=== PATIENT | male | born 1940 | race Caucasian/White ===

== ENCOUNTER 2022-04-17 07:17 | Outpatient (CLI) | payer OTHER, SELFPAY | END 2022-04-17 07:18 | disposition home or self-care (01) | LOC: OP CLINIC 07:19 | PROVIDERS: PCP Nurse Practitioner Family; Visit Provider Internal Medicine Gastroenterology | DX: K22.70 Barrett's esophagus without dysplasia (principal); K31.7 Polyp of stomach and duodenum; K31.89 Other diseases of stomach and duodenum | CPT/HCPCS: 43239; J2250; J3010 ==

== ENCOUNTER 2023-05-24 14:11 | Outpatient (RCR) | payer OTHER, SELFPAY | END 2023-09-21 23:59 | disposition home or self-care (01) | PROVIDERS: PCP Nurse Practitioner Family; Visit Provider Psychiatry & Neurology Neurology | DX: G20.A1 Parkinson's disease without dyskinesia, without mention of fluctuations (principal); K11.7 Disturbances of salivary secretion; R47.02 Dysphasia; R49.0 Dysphonia; R47.89 Other speech disturbances; Z51.89 Encounter for other specified aftercare | CPT/HCPCS: 92610 ==

== ENCOUNTER 2023-08-06 10:36 | Outpatient (CLI) | payer OTHER, SELFPAY ==
--- NOTE | 2023-08-06 11:55 | P.ANES_ITS ---
Anesthesia Charges Start Date/Time Anesthesia Start Date: 08/06/23 Anesthesia Start Time: 11:24 Stop Date/Time Anesthesia Stop Date: 08/06/23 Anesthesia Stop Time: 11:52 Summary Extremes of Age - Over 70 or under 1: ADVANCED PRACTICE REGISTERED NURSE
--- NOTE | 2023-08-06 12:54 | W.ANESCHARGE ---
Anesthesia Charges Start Date/Time Anesthesia Start Date: 08/06/23 Anesthesia Start Time: 11:24 Stop Date/Time Anesthesia Stop Date: 08/06/23 Anesthesia Stop Time: 11:52 Summary Extremes of Age - Over 70 or under 1: MDA
== END 2023-08-06 10:37 | disposition home or self-care (01) ==
LOC: OP CLINIC 10:38
PROVIDERS: PCP Nurse Practitioner Family; Visit Provider Internal Medicine Gastroenterology
DX: Z12.11 Encounter for screening for malignant neoplasm of colon (principal); K57.30 Diverticulosis of large intestine without perforation or abscess without bleeding; Z86.010 Personal history of colon polyps
CPT/HCPCS: 00812; 45378; 99100; J2704

== ENCOUNTER 2024-07-22 13:27 | Outpatient (CLI) | payer OTHER, SELFPAY | END 2024-07-22 13:28 | disposition home or self-care (01) | LOC: MRI 13:29 | PROVIDERS: PCP Nurse Practitioner Family; Visit Provider Family Medicine | DX: M54.50 Low back pain, unspecified (principal); M47.896 Other spondylosis, lumbar region; M51.26 Other intervertebral disc displacement, lumbar region; M25.512 Pain in left shoulder; G89.29 Other chronic pain | CPT/HCPCS: 72148 ==

== ENCOUNTER 2024-08-05 06:26 | Outpatient (CLI) | payer OTHER, SELFPAY ==
[2024-08-05 07:14] VITALS: BP 166/95; PULSE 85; RESP 16; O2SAT 96
--- NOTE | 2024-08-05 07:43 | P.ORPRC_ITS ---
Procedure Note Date of procedure: 08/05/24 Procedure: PREOPERATIVE DIAGNOSIS: Left hip abductor tendinopathy/greater trochanteric bursitis POSTOPERATIVE DIAGNOSIS: Left hip abductor tendinopathy/greater trochanteric bursitis NAME OF OPERATION: Percutaneous tenotomy SURGEON: Santosh White MD PHOTO MASK PROCESSOR: Yessi Posada PA-C ANESTHESIA: Local ESTIMATED BLOOD LOSS: 2 mL. COMPLICATIONS: None. SPECIMENS: None. DRAINS: None. PREOPERATIVE ANTIBIOTICS: None INDICATIONS: The patient is a 83-year-old with a history of left hip pain secondary to the above diagnoses. Despite appropriate non operative management, they continue to have symptoms. Operative intervention was recommended. The risks, benefits and expected outcomes were discussed in detail. These included but were not limited to: Infection, bleeding, injury to blood vessel or nerve, venous thromboembolism. All questions were answered to their satisfaction. PROCEDURE: The patient was placed in the lateral decubitus position. The left hip was imaged in the long and short axes with the ultrasound transducer. Normal acoustic landmarks were identified. We then sterilely prepped and draped the skin, and used a sterile probe cover with sterile gel. Local anesthesia was established with 10 mL of a solution containing 2 % lidocaine without epinephrine, 0.5% Marcaine without epinephrine and sodium bicarbonate. An 11 blade was used to incise the skin. The Tenex TX 2 micro tip was used to treat the abductor tendon for a total of 4 minutes and 7 seconds. The incision was Steri-Stripped closed. A dry dressing was applied. Sponge and needle counts were correct x2. The patient tolerated the procedure well. There were no apparent complications. They were discharged to home in satisfactory condition. PLAN: The patient may weightbear as tolerates. Ice, Tylenol and ibuprofen can be used for discomfort. They may ramp up activity as the hip will allow. They will follow up in the office in 6 weeks to assess their progress.
== END 2024-08-05 07:46 | disposition home or self-care (01) ==
PROVIDERS: PCP Nurse Practitioner Family; Visit Provider Orthopaedic Surgery
DX: M70.62 Trochanteric bursitis, left hip (principal)
CPT/HCPCS: 27006; 76942; J0665

== ENCOUNTER 2024-08-12 09:22 | Outpatient (CLI) | payer OTHER, SELFPAY | END 2024-08-12 09:23 | disposition home or self-care (01) | LOC: INJ CL 09:22 | PROVIDERS: PCP Nurse Practitioner Family; Visit Provider Family Medicine | DX: M54.16 Radiculopathy, lumbar region (principal); M51.26 Other intervertebral disc displacement, lumbar region | CPT/HCPCS: 64483; J1100; Q9966 ==

== ENCOUNTER 2024-09-05 08:27 | Outpatient (CLI) | payer OTHER, SELFPAY | END 2024-09-05 08:28 | disposition home or self-care (01) | LOC: INJ CL 08:28 | PROVIDERS: PCP Nurse Practitioner Family; Visit Provider Family Medicine | DX: M54.16 Radiculopathy, lumbar region (principal); M51.369 Other intervertebral disc degeneration, lumbar region without mention of lumbar back pain or lower extremity pain | CPT/HCPCS: 64483; J1100; Q9966 ==

== ENCOUNTER 2025-04-17 09:04 | Outpatient (CLI) | payer OTHER, SELFPAY ==
--- NOTE | 2025-04-17 10:20 | P.ANES_ITS ---
Anesthesia Charges Start Date/Time Anesthesia Start Date: 04/17/25 Anesthesia Start Time: 09:50 Stop Date/Time Anesthesia Stop Date: 04/17/25 Anesthesia Stop Time: 10:19 Summary Extremes of Age - Over 70 or under 1: PULMONARY NURSE PRACTITIONER Coding CPT Codes CPT Codes: ANES UPR GI NDSC PX NOS - 36195 ([id number]) P3 - PATIENT W/SEVERE SYS DISEASE, QZ - PULMONARY NURSE PRACTITIONER SVC W/O SUPERVISOR TUMBLING AND ROLLING BY Additional Codes: Summary - Extremes of Age - Over 70 or under 1: PULMONARY NURSE PRACTITIONER ([id number])
--- NOTE | 2025-04-17 10:20 | W.ANESCHARGE ---
Anesthesia Charges Start Date/Time Anesthesia Start Date: 04/17/25 Anesthesia Start Time: 09:50 Stop Date/Time Anesthesia Stop Date: 04/17/25 Anesthesia Stop Time: 10:19 Summary Extremes of Age - Over 70 or under 1: MEDICAL INTERPRETER Coding CPT Codes CPT Codes: ANES UPR GI NDSC PX NOS - 62538 ([id number]) P3 - PATIENT W/SEVERE SYS DISEASE, QZ - MEDICAL INTERPRETER SVC W/O FOREIGN STUDENT ADVISER BY Additional Codes: Summary - Extremes of Age - Over 70 or under 1: MEDICAL INTERPRETER ([id number])
== END 2025-04-17 09:05 | disposition home or self-care (01) ==
LOC: OP CLINIC 09:05
PROVIDERS: PCP Nurse Practitioner Family; Visit Provider Internal Medicine Gastroenterology
DX: K22.70 Barrett's esophagus without dysplasia (principal); K31.9 Disease of stomach and duodenum, unspecified; K22.82 Esophagogastric junction polyp
CPT/HCPCS: 00731; 43239; 88305; 99100; J2704; J3010

== ENCOUNTER 2025-05-20 19:47 | Emergency (ER) | payer OTHER, SELFPAY ==
[2025-05-20] VITALS (10 sets, daily range): BP systolic 100–131; BP diastolic 55–71; PULSE 76–92; RESP 13–22; TEMP 36.2–36.6; O2SAT 93–99; BMI 32.8
--- NOTE | 2025-05-20 20:24 | CRLHL7_ITS ---
For Patients: As a result of the Cures Act, medical imaging exams and procedure reports are released immediately into your electronic medical record. You may view this report before your referring provider. If you have questions, please contact your health care provider. INDICATION: Chest pain. TECHNIQUE: Chest 2 views. COMPARISON: None. FINDINGS: Cardiovascular and mediastinum: Cardiomediastinal silhouette is within normal limits. Lungs and pleural spaces: Hyperinflated lungs, likely reflecting COPD. No consolidation. No pleural effusions or pneumothorax. Bones and soft tissues: Degenerative changes of the spine and shoulders. IMPRESSION: No evidence of acute pulmonary process. Dictated by Jase Trotter MD @ 05/20/2025 11:02:20 PM (Electronically Signed)
--- NOTE | 2025-05-20 20:24 | ED_ITS ---
HPI - General Adult General Chief complaint: GI Bleed Stated complaint: black bowel movements, unsteady Time Seen by Provider: 05/20/25 19:51 History of Present Illness HPI narrative: 84-year-old male with a pertinent history of AFib, coronary artery disease and known gastric polyps that have caused prior GI bleed in the past presents to the ED with weakness. He is concerned that he could be having a GI bleed because he had a black stool, loose in nature today at noon. He does take MiraLax daily but had not had a bowel movement in 4 days until today. It was only the 1 stool that was black tinged. Last stool was Sunday which is 4 days ago prior to this and that 1 was formed and dark brown though not frankly black. There has been no bright red blood. He had an endoscopy last month and this showed that he had gastric polyps. He is scheduled for resection of those in July. Met with his GI doctor 10 days ago and did not have any signs or symptoms of active bleeding at that time. Patient does have a notable history of coronary artery disease. Reports she saw his host/hostess ground over the summer. He was having some stable angina symptoms and did have a stress test. Reports that he was prescribed isosorbide for days when he has chest pain. He has DUs that the last couple of days. He is not having yvonne chest pain he is having lower throat pain on exertion. He says that this is his typical anginal equivalent. This is an ongoing issue and typically the isosorbide does relieve his symptoms. It did not completely relieve his symptoms and he did become symptomatic while walking to get the mail today. Symptoms went away with rest and he has not continued to have any chest pain or his equivalent symptoms. He does have a history of AFib, anticoagulated on Eliquis, continues to take this without difficulty. He reports that his weight did go up from his baseline of 235 to 240 3 days ago. Because of this he took double his furosemide twice daily on Sunday and then again today. So an important part of the story here is that he took both double his furosemide and the rarely used isosorbide. He reports that since he was feeling weak, he took his blood pressure noted to be around 100/60 at home. This made him more concerned about the possibility of GI bleeding. He is also noting dizziness for the past 3 days. Specifically this is not vertigo type symptoms but rather lightheadedness and fatigue. No stroke-like symptoms or focal weakness noted. He does have a history of Parkinson's, reports that he fell 8 days ago, has some bruising around his left knee and hip, thinks that is unrelated. Currently he is denying any chest pain or his anginal equivalent at rest, no nausea or vomiting, no shortness of breath. Weight has come down from the high of 242 days ago down to 238 this morning. He would be scheduled to take his extra furosemide again on Sunday to complete the 3 times in 1 week scheduled protocol for 5 lb weight gain. Past medical history is notable for atrial fibrillation, anticoagulated on Eliquis status post ablation, coronary artery disease with multiple prior stents placed, hyperlipidemia, Parkinson's disease, hypertension, osteoarthritis the lumbar spine. Medications reviewed and updated. The only medication not on his list is the p.r.n. isosorbide and his furosemide which he takes based on his weight. Allergies noted, reviewed. Twelve system review of systems is notable for the generalized, cardiovascular and GI symptoms as above. Otherwise denies times 12 systems. Related Data Home Medications ?Medication ?Instructions ?Recorded ?Confirmed amlodipine 10 mg tablet 10 mg PO DAILY 03/10/2408/23 apixaban 5 mg tablet (Eliquis) 5 mg PO BID 03/10/24 carbidopa 25 mg-levodopa 100 mg tab PO 03/10/24 tablet clobetasol 0.05 % scalp solution topical 03/10/2408/23 cyclobenzaprine 10 mg tablet 10 mg PO BID PRN 03/10/24 09/10/24 ketoconazole 2 % shampoo 1 applic topical 2XW 4 09/10/24 lansoprazole 30 mg capsule,delayed 30 mg PO DAILY 02/2309/10/24 release leuprolide acetate (6 month) 45 mg 45 mg IM [id number] 03/10/24 09/10/24 intramuscular syringe kit (Lupron Depot) metoprolol tartrate 25 mg tablet 25 mg PO BID PRN 02/2309/10/24 nitroglycerin 0.4 mg sublingual 0.4 mg sublingual WHITNEY Y 03/10/24 09/10/24 tablet rosuvastatin 20 mg tablet 20 mg PO QPM 03/10/24 losartan 50 mg tablet 50 mg PO BID 07/30/24 gabapentin 300 mg capsule 600 mg PO QHS 08/25/2409/10 Previous Rx's ?Medication ?Instructions ?Recorded tramadol 50 mg tablet 50 mg PO Q6-8H PRN pain #30 tabs 07/24/24 Chair Lift #1 ea 09/10/24 Powered Stair Lift #1 ea 09/10/24 Walker- 4 Wheels #1 ea 09/10/24 Allergies Allergy/AdvReac Type Severity Reaction Status Date / Time adhesive Allergy Rash Verified 05/20/25 19:58 atorvastatin Allergy myalgia Verified 05/20/25 19:58 lovastatin Allergy malagia Verified 05/20/25 19:58 lisinopril AdvReac Cough Verified 05/20/25 19:58 potassium aminbenzoate Allergy Uncoded 09/10/24 10:33 sunscreen Allergy Uncoded 09/10/24 10:33 [facility] Medical History Hip bursitis, left ?M70.72 - Other bursitis of hip, left hip (ICD-10) Skin cancer ?C44.90 - Unspecified malignant neoplasm of skin, unspecified (ICD-10) Parkinsons disease ?G20.A1 - Parkinson's disease without dyskinesia, without mention of fluctuations (ICD-10) High cholesterol ?E78.00 - Pure hypercholesterolemia, unspecified (ICD-10) Coronary artery disease ?I25.10 - Atherosclerotic heart disease of [place] coronary artery without angina pectoris (ICD-10) Prostate cancer ?C61 - Malignant neoplasm of prostate (ICD-10) Hypertension ?I10 - Essential (primary) hypertension (ICD-10) Surgical History History of tenotomy (08/05/24) ?Z98.890 - Other specified postprocedural states (ICD-10) History of ear surgery ?Z98.890 - Other specified postprocedural states (ICD-10) History of heart artery stent ?Z95.5 - Presence of coronary angioplasty implant and graft (ICD-10) History of arthroscopy of right shoulder (02/28/12) ?Z98.890 - Other specified postprocedural states (ICD-10) History of arthroscopy of left shoulder (03/09/15) ?Z98.890 - Other specified postprocedural states (ICD-10) History of arthroscopy of right knee (08/24/10) ?Z98.890 - Other specified postprocedural states (ICD-10) History of arthroscopy of left knee (05/18/14) ?Z98.890 - Other specified postprocedural states (ICD-10) Family History Other Colon cancer Heart disease Social History Narrative: -Didi Former smoker-quit 1989 Smoking Status: Former smoker What tobacco products do you use: cigarettes Smoking quit date/years: >15 years ago Do you use any of these nicotine containing products: None Second hand tobacco smoke exposure: No Exam Const: Vital Signs, click to edit/add: Vital Signs - 24 hr 05/20/25 19:52 05/20/25 21:05 05/20/25 21:06 Temperature 97.8 F Pulse Rate 83 80 Pulse Rate [Pulse Oximeter] 91 Pulse Rate [orthos tatic lying Right Pulse Oximeter] Pulse Rate [orthos tatic sitting Left Pulse Oximeter] Pulse Rate [orthos tatic standing Rig ht Pulse Oximeter] Respiratory Rate 16 22 19 Blood Pressure 103/55 L Blood Pressure [Ri ght Upper Arm] 109/66 Blood Pressure [or thostatic lying Ri ght Arm] Blood Pressure [or thostatic sitting Right Arm] Blood Pressure [or thostatic standing Right Arm] Pulse Oximetry 99 96 94 Oxygen Delivery Me thod Room Air 05/20/25 21:15 05/20/25 21:17 05/20/25 21:30 Temperature Pulse Rate 85 80 Pulse Rate [Pulse Oximeter] Pulse Rate [orthos tatic lying Right Pulse Oximeter] Pulse Rate [orthos tatic sitting Left Pulse Oximeter] Pulse Rate [orthos tatic standing Rig ht Pulse Oximeter] Respiratory Rate 18 14 Blood Pressure 131/69 Blood Pressure [Ri ght Upper Arm] Blood Pressure [or thostatic lying Ri ght Arm] Blood Pressure [or thostatic sitting Right Arm] Blood Pressure [or thostatic standing Right Arm] Pulse Oximetry Oxygen Delivery Me thod 05/20/25 21:32 05/20/25 22:21 05/20/25 23:30 Temperature 97.2 F L Pulse Rate 76 Pulse Rate [Pulse Oximeter] 78 Pulse Rate [orthos tatic lying Right Pulse Oximeter] 82 Pulse Rate [orthos tatic sitting Left Pulse Oximeter] 91 Pulse Rate [orthos tatic standing Rig ht Pulse Oximeter] 92 Respiratory Rate 13 16 Blood Pressure 128/59 L Blood Pressure [Ri ght Upper Arm] 100/57 L Blood Pressure [or thostatic lying Ri ght Arm] 109/61 Blood Pressure [or thostatic sitting Right Arm] 110/63 Blood Pressure [or thostatic standing Right Arm] 115/71 Pulse Oximetry 96 93 Oxygen Delivery Me thod Room Air 05/20/25 23:32 Temperature Pulse Rate Pulse Rate [Pulse Oximeter] Pulse Rate [orthos tatic lying Right Pulse Oximeter] Pulse Rate [orthos tatic sitting Left Pulse Oximeter] Pulse Rate [orthos tatic standing Rig ht Pulse Oximeter] Respiratory Rate Blood Pressure Blood Pressure [Ri ght Upper Arm] 106/64 Blood Pressure [or thostatic lying Ri ght Arm] Blood Pressure [or thostatic sitting Right Arm] Blood Pressure [or thostatic standing Right Arm] Pulse Oximetry Oxygen Delivery Me thod Documenting provider has reviewed patient's vital signs: yes Common normals: no apparent distress and alert Other: Speaks slowly, resting tremor noted. Masked faces, friendly and cooperative. No pallor. Appears well nourished and well hydrated. HENMT: Common normals: normocephalic, moist oral mucous membranes and oropha rynx normal Head and scalp: normocephalic Mouth: oral and palatal mucosa normal Eye: Common normals: EOMs intact bilaterally and conjunctivae normal General eye: normal appearance of both eyes Conjunctiva: conjunctiva(e) normal Neck & C-Spine: Common normals: no lymphadenopathy General: normal visual inspection Resp: Common normals: normal respiratory effort, no use of accessory muscles and clear to auscultation bilaterally Effort & inspection: able to speak in complete sentences Auscultation: clear to auscultation bilaterally Cardio: Common normals: regular rate, regular rhythm, S1 normal heart sound, S2 normal heart sound and no murmurs Rate: regular rate Rhythm: regular rhythm Heart sounds: S1 normal and S2 normal GI: Common normals: Normal to inspection, nondistended, normoactive bowel sounds present, soft to palpation, non-tender, no hepatosplenomegaly and no masses Palpation: soft and no hepatosplenomegaly Extremity: Other: Moderate bruising along left lateral knee and lateral thigh. No palpable hematoma or joint effusion. Does seem consistent with date of reported injury. 1+ bilateral lower extremity edema. Neuro: Sensorium/orientation: alert Speech: speech normal Motor exam: strength 5/5 throughout Psych: Appearance: grossly normal Attitude: engaged Attention/concentration: attention grossly intact Memory/cognition: memory grossly intact Insight: insight good Judgement: judgment good Skin: Common normals: no rashes or lesions noted General skin exam: no rashes or lesions noted Course Course ED Course: 84-year-old male with history of Parkinson's presenting with weakness and questionable anginal equivalent symptoms with dark stool worrisome for recent GI bleed. Known source of gastric polyps. Will obtain stool fecal occult blood test. EKG, electronic device monitor and troponins as well as BNP. Chest x-ray. Typical labs to look for dehydration, electrolyte abnormalities, renal dysfunction. My suspicion is the weakness has been caused by the use of his increased diuretics at the same time as his isosorbide in addition to all of his other ant ihypertensives. He is not frankly hypotensive, will obtain some orthostatic blood pressures. I think that he might feel little better if he got some IV fluid but I am hesitant to do that until I am certain he is not volume overloaded or exhibiting signs of heart failure. Await findings. Update: Review of the records shows that his hemoglobin from other health systems tends to run around 13, most recent value drawn was back from December though. Reevaluation(s) Time of Reevaluation #1: 23:07 Reevaluation #1: Counseled patient and his on findings. Suspect that this is been a chronically bleeding upper GI bleed but has become more acute and certainly has become symptomatic now that he is having anginal equivalent and symptoms of heart failure. Recommended transfer, they were agreeable to this, do sign off on ambulance transfer. I have spoken with [facility] and the [place] [facility] has accepted the patient also and will consult GI. Will give Protonix. Orthostatic blood pressures reviewed, not currently orthostatic. We will hold the patient's Eliquis. No signs of sudden active GI bleed or hemodynamic instability. No indications to transfuse just yet. Awaiting nurse report and then will transfer by ALS ground. Was informed that there are currently no beds delays. Update: Patient transferred to [facility] by ALS ground with no complications. Still had no active signs of bleeding and vitals remain stable. Vital Signs Vital signs: Initial Vital Signs Temperature 97.8 F 05/20/25 19:52 Temperature Source Temporal Artery Scan 05/20/25 19:52 Pulse Rate 91 05/20/25 19:52 Respiratory Rate 16 05/20/25 19:52 Blood Pressure 109/66 05/20/25 19:52 Blood Pressure Mean 80 05/20/25 19:52 Blood Pressure Position Sitting 05/20/25 19:52 Pulse Oximetry 99 05/20/25 19:52 Oxygen Delivery Method Room Air 05/20/25 19:52 Vital Signs Temperature 97.8 F 05/20/25 19:52 Pulse Rate 91 05/20/25 19:52 Respiratory Rate 16 05/20/25 19:52 Blood Pressure 109/66 05/20/25 19:52 Pulse Oximetry 99 05/20/25 19:52 Oxygen Delivery Method Room Air 05/20/25 19:52 Temperature 97.2 F L 05/20/25 23:30 Pulse Rate 78 05/20/25 23:30 Respiratory Rate 16 05/20/25 23:30 Blood Pressure 106/64 05/20/25 23:32 Pulse Oximetry 93 05/20/25 23:30 Oxygen Delivery Method Room Air 05/20/25 23:30 Medications Administered Medications: Discontinued Medications Generic Name Dose Route Start Last Admin Trade Name Freq PRN Reason Stop Dose Admin Acetaminophen 1,000 mg 05/21/25 00:05 05/21/25 00:09 Acetaminophen 500 Mg Tablet PO 05/21/25 00:06 1,000 mg ONCE ONE Administration Pantoprazole Sodium 40 mg 05/20/25 22:46 05/20/25 23:03 Pantoprazole Sodium 40 Mg Inj IVP 05/20/25 22:47 40 mg ONCE ONE Administration Medical Decision Making Lab Data Lab results reviewed: Yes I reviewed the patient's lab results Lab results narrative: Hemoglobin drop from 13-8.4. Remainder of electrolytes, renal function, liver function, inflammatory markers all look normal. BUN is elevated, not unexpected with upper GI bleed. Labs: Lab Results 05/20/25 Range/Units 20:30 WBC 9.58 (4.50-11.00) K/uL RBC 2.50 L (4.30-5.90) m/uL Hgb 8.4 L (13.5-17.5) gm/dL Hct 25.3 L (37.0-53.0) % MCV 101 H (80-100) fL MCH 34 (26-34) pg MCHC 33 (32-36) gm/dL RDW Coeff of Miki 14.5 (11.5-15.5) % Plt Count 196 (140-440) K/uL Neut % (Auto) 68.3 (42.0-72.0) % Lymph % (Auto) 21.1 (20-44) % [place] % (Auto) 7.0 (0.0-11.0) % Eos % (Auto) 3.2 (0.0-7.0) % Baso % (Auto) 0.1 (0.0-3.0) % Neut # (Auto) 6.54 (1.7-7.0) K/uL Lymph # (Auto) 2.02 (0.90-2.90) K/uL [place] # (Auto) 0.70 (0.00-0.90) K/UL Eos # (Auto) 0.31 (0.00-0.50) K/uL Baso # (Auto) 0.01 (0.00-0.30) K/uL Abs Immat Gran (auto) 0.03 (0.00-0.30) K/uL Imm/Tot Granulo (auto) 0.3 % Sodium 137 (135-149) mmol/L Potassium 3.3 L (3.6-5.1) mmol/L Chloride 98 (96-114) mmol/L Carbon Dioxide 26 (20-32) mmol/L Anion Gap 13 (7-15) mEq/L BUN 48 H (7-30) mg/dL Creatinine 1.0 (0.5-1.5) mg/dL Estimated Creat Clear 59.61 Estimated GFR 75 ml/min Glucose 141 H (60-115) mg/dL Calcium 8.7 (8.4-10.6) mg/dL Magnesium 1.9 (1.5-2.6) mg/dL Total Bilirubin 0.4 (0.1-1.5) mg/dL AST 25 (12-35) U/L ALT 9 (4-50) U/L Alkaline Phosphatase 51 (40-150) U/L POC Troponin I High Sensi 5.6 (2.9-28.0) pg/mL C-Reactive Protein < 0.5 L (0.5-1.0) mg/dL NT-Pro-B Natriuret Pep 67 (See Note) pg/mL Total Protein 6.9 (6.0-8.3) g/dL Albumin 4.0 (3.3-5.0) g/dL Imaging Data Chest x-ray: Attestation: I have reviewed the pertinent imaging results. My impression: No pleural effusion, no cardiomegaly, no infiltrate or vascular congestion. Radiologist's impression: IMPRESSION: No evidence of acute pulmonary process. Dictated by Jase Trotter MD @ 05/20/2025 11:02:20 PM ECG Data Attestation: I personally reviewed and interpreted this ECG as follows: Prior ECG tracings: not available for review Interpretation: No prior comparison EKG. Patient is currently in sinus rhythm there are few PACs but rate is currently 80. [place] appears normal. PN T-waves appear normal. No obvious major ST or T-wave abnormalities that would indicate ischemia. Discharge Plan Discharge Clinical Impression: Acute upper gastrointestinal bleeding, Acute blood loss anemia, Angina of effort Patient Disposition: [facility] Condition: Guarded Prescriptions: No Action clobetasol 0.05 % solution topical ketoconazole 2 % shampoo 1 applic topical 2XW amlodipine 10 mg tablet 10 mg PO DAILY nitroglycerin 0.4 mg tablet, sublingual 0.4 mg sublingual DAILY cyclobenzaprine 10 mg tablet 10 mg PO BID PRN metoprolol tartrate 25 mg tablet 25 mg PO BID PRN lansoprazole 30 mg capsule,delayed release(DR/EC) 30 mg PO DAILY Eliquis 5 mg tablet 5 mg PO BID rosuvastatin 20 mg tablet 20 mg PO QPM carbidopa-levodopa 25-100 mg tablet PO Lupron Depot (6 Month) 45 mg syringe kit 45 mg IM [id number] losartan 50 mg tablet 50 mg PO BID gabapentin 300 mg capsule 600 mg PO QHS Patient Comments: [NO ORIGINAL SIG] (DME) Powered Stair Lift See Rx Instructions .Route .MEDSUPPLY Qty: 1 0RF Rx Instructions: As directed (DME) Chair Lift See Rx Instructions .Route .MEDSUPPLY Qty: 1 0RF Rx Instructions: As directed (DME) Walker- 4 Wheels Misc See Rx Instructions .Route Qty: 1 0RF Rx Instructions: As directed tramadol 50 mg tablet 50 mg PO Q6-8H PRN (Reason: pain) Qty: 30 0RF Stand Alone Forms: My[facility] Info Instructions
[2025-05-20 20:42] LABS: Hematocrit* 25.3 % (37.0-53.0); Hemoglobin* 8.4 gm/dL (13.5-17.5); Immature Granulocytes Abs Auto 0.03 K/uL (0.00-0.30); Immature Granulocytes Pct Auto 0.3 %; Lymphocytes Absolute Auto 2.02 K/uL (0.90-2.90); Mean Corpuscular HGB Conc 33 gm/dL (32-36); Mean Corpuscular Hemoglobin 34 pg (26-34); Mean Corpuscular Volume 101 fL (80-100); RDW Coefficient of Variation % 14.5 % (11.5-15.5); Red Blood Count* 2.50 m/uL (4.30-5.90); White Blood Count* 9.58 K/uL (4.50-11.00)
[2025-05-20 20:49] LABS: Slide Review Reflex No
[2025-05-20 20:55] LABS: Albumin* 4.0 g/dL (3.3-5.0); Chloride* 98 mmol/L (96-114); Potassium* 3.3 mmol/L (3.6-5.1); Sodium* 137 mmol/L (135-149)
[2025-05-20 20:57] LABS: Blood Urea Nitrogen* 48 mg/dL (7-30); Creatinine* 1.0 mg/dL (0.5-1.5); Est. Creatinine Clearance* 59.61; Estimated Glomerular Filt Rate 75 ml/min
[2025-05-20 20:58] LABS: Alanine Aminotransferase* 9 U/L (4-50); Alkaline Phosphatase* 51 U/L (40-150); Anion Gap 13 mEq/L (7-15); Aspartate Amino Transferase* 25 U/L (12-35); Bilirubin Total* 0.4 mg/dL (0.1-1.5); Calcium* 8.7 mg/dL (8.4-10.6); Carbon Dioxide* 26 mmol/L (20-32); Glucose* 141 mg/dL (60-115); Total Protein* 6.9 g/dL (6.0-8.3)
--- OUTSIDE RECORDS SUMMARY | 2025-05-20 20:59 | XMS_ITS | Clinical Summary ---
Author Organization [facility] Address [address] , [address] [place] [address] Phone Care Team Providers Care Maintenance Mechanic Millwright Name Role Phone [facility] [place] Unavailable Unava ilable Conditions or Problems Problem Name Problem Code Onset Date Status Entry Date Provider Comment Standard Description Annotate Gait imbalance [id number] (SNOMED CT) 01/22 Active 01/22 Kailey Mendoza DNP,BODY TRIMMER UPHOLSTERER,CN P Abnormal gait due to impairment of balance Tremor, left hand 59647309 (SNOMED CT) 07/31 Active 07/31 Kailey Mendoza DNP,BODY TRIMMER UPHOLSTERER,CN P Tremor Parkinson's disease without dyskinesia, without mention of fluctuations 05608285 (SNOMED CT) 08/08 Active 08/08 [facility] Parkinson's disease Drooling 52437762 (SNOMED CT) Active Kailey Mendoza DNP,BODY TRIMMER UPHOLSTERER,CN P Dribbling from mouth Cog wheel rigidity 56500148 (SNOMED CT) 08/08 Active 08/08 Simón Cali MD Cogwheel muscle rigidity Weakness of left arm 042815668 (SNOMED CT) 07/09 Resolved 07/09 Simón Cali MD Monoparesis - arm Parkinsonism 70968453 (SNOMED CT) 09/01 Resolved 09/01 Simón Cali MD Parkinsonism Parkinson's disease 51199813 (SNOMED CT) 08/08 Inactive 08/08 Simón Cali MD Parkinson's disease Parkinsonism 88182732 (SNOMED CT) 09/01 Removed 09/01 Chandra Rdz MD Parkinsonism Median neuropathy 015198841 (SNOMED CT) 07/29 Active 07/29 Ismael Dash MD 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 07/29 Ismael Dash MD Ulnar neuropathy Weakness of left arm 201630178 (SNOMED CT) 07/09 Removed 07/09 Chandra Rdz MD Monoparesis - arm Medications Medication Instructions Start Date Stop Date Generic Name NDC Provider ENTACAPONE 200 MG TABS 1 TAB ORALLY 3 TIMES DAILY (TAKE ALONG WITH CARBIDOPA-LEVO DOPA) 01/22 entacapone [id number] Kailey Mendoza DNP,BODY TRIMMER UPHOLSTERER,TRASH COLLECTOR SUPERVISOR CARBIDOPA-LEVODOP A 25-100 MG TABS TAKE TWO TABLETS BY MOUTH FOUR TIMES A DAY carbidopa-levodop a [id number] Kailey Mendoza DNP,BODY TRIMMER UPHOLSTERER,TRASH COLLECTOR SUPERVISOR SOTALOL HCL 80 MG TABS Take 1 tablet by mouth twice a day sotalol 79904692945 Simón Cali MD CARBIDOPA-LEVODOP A 25-100 MG TABS TAKE TWO TABLETS BY MOUTH THREE TIMES A DAY, DO NOT TAKE WITH FOOD. MAY TAKES EXTRA 1 TO 2 TABS NEEDED FOR BAD DAYS carbidopa-levodop a [id number] Simón Cali MD ENTACAPONE 200 MG TABS 1 TAB ORALLY 3 TIMES DAILY (TAKE ALONG WITH CARBIDOPA-LEVO DOPA) 01/22 entacapone 21831975525 Simón Cali MD CARBIDOPA-LEVODOP A 25-100 MG TABS TAKE TWO TABLETS BY MOUTH THREE TIMES A DAY, at 1 hr before meals . MAY TAKES EXTRA 1 TO 2 TABS NEEDED FOR BAD DAYS 01/22 carbidopa-levodop a 53545814586 Simón Cali MD MEGESTROL ACETATE 20 MG TABS 07/31 megestrol 12490047354 Kailey Harman Rechtzigel DNP,BODY TRIMMER UPHOLSTERER,TRASH COLLECTOR SUPERVISOR CARBIDOPA-LEVODOP A 25-100 MG TABS TAKE TWO TABLETS BY MOUTH THREE TIMES A DAY, DO NOT TAKE WITH FOOD. MAY TAKES EXTRA 1 TO 2 TABS NEEDED FOR BAD DAYS 01/02 carbidopa-levodop a 27827183526 Simón Cali MD MEGESTROL ACETATE 20 MG TABS 07/31 megestrol 18946040649 Kailey Ghazal Rechtzigel DNP,BODY TRIMMER UPHOLSTERER,TRASH COLLECTOR SUPERVISOR TAMSULOSIN HCL 0.4 MG CAPS tamsulosin 71179854036 Kailey Ghazal Rechtzigel DNP,BODY TRIMMER UPHOLSTERER,TRASH COLLECTOR SUPERVISOR lupron lupron Kailey Ghazal Rechtzigel DNP,BODY TRIMMER UPHOLSTERER,TRASH COLLECTOR SUPERVISOR AMLODIPINE BESYLATE 5 MG TABS 08/08 amlodipine 49904832791 Simón Cali MD PREDNISONE 20 MG TABS Take 3 tabs daily with food for 4 days, then 2 tabs daily for 4 days, and then 1 tab daily for 4 days. 08/08 prednisone 21753582376 Simón Cali MD CARBIDOPA-LEVODOP A 25-100 MG TABS TAKE TWO TABLETS BY MOUTH THREE TIMES A DAY, DO NOT TAKE WITH FOOD 08/08 carbidopa-levodop a [id number] Simón Cali MD CARBIDOPA-LEVODOP A 25-100 MG TABS TAKE TWO TABLETS BY MOUTH THREE TIMES A DAY, DO NOT TAKE WITH FOOD. MAY TAKES EXTRA 1 TO 2 TABS NEEDED FOR BAD DAYS 01/02 carbidopa-levodop a 43791660315 Simón Cali MD CYCLOBENZAPRINE HCL 10 MG TABS Take 1 tablet by mouth twice a day as needed cyclobenzaprine 38068340047 Andrés Titus ALBUTEROL SULFATE HFA 108 (90 Base) MCG/ACT AERS Inhale 2 puff by mouth four times a day as needed albuterol sulfate 41307154776 Andrés Titus BETAMETHASONE DIPROPIONATE 0.05 % LOTN Apply to skin twice a day betamethasone dipropionate 03667819684 Andrés Ariela SOTALOL HCL 80 MG TABS Take 1 tablet by mouth twice a day sotalol 11077794673 Andrés Titus multivitamins-min erals-lutein 1 tablet CERTAVITE SENIOR-ANTIOXIDAN T Andrés Pearceterridanna PREDNISONE 20 MG TABS Take 3 tabs daily with food for 4 days, then 2 tabs daily for 4 days, and then 1 tab daily for 4 days. 08/08 prednisone 40515492282 Andrés Ariela LANSOPRAZOLE 30 MG CPDR Take 1 capsule by mouth once a day lansoprazole 94443664636 Andrés Titus FEXOFENADINE HCL 180 MG TABS Take 1 tablet by mouth once a day fexofenadine 49609884224 Andrés Titus glucosamine-chond roit-vit c-mn Take 1 capsule by mouth three times a day GLUCOSAMINE 1500 COMPLEX Andrés Titus ELIQUIS 5 MG TABS Take 1 tablet by mouth twice a day apixaban 30967511127 Andrés Titus AMLODIPINE BESYLATE 5 MG TABS Take 1 tablet by mouth once a day amlodipine 82732757301 Andrés Titus ACETAMINOPHEN 500 MG TABS 1000 mg by mouth acetaminophen 01254311313 Andrés Titus ROSUVASTATIN CALCIUM 20 MG TABS Take 1 tablet by mouth every night rosuvastatin 13841554003 Andrés Titus NITROGLYCERIN 0.[address] 1 tablet under the tongue every 5 minutes if needed for Chest Pain. nitroglycerin 00222525886 Andrés Titus KETOCONAZOLE 2 % SHAM Lather on damp scalp, leave on for 5min, then rinse with water one to two times a week. ketoconazole 73507206692 Andrés Titus LOSARTAN POTASSIUM 50 MG TABS Take 1 tablet by mouth once a day losartan 78338173936 Andrés Titus fish oil-omega-3 fatty acids 1,000-340 mg capsule Take 4000 mg once a day fish oil-omega-3 fatty acids 1,000-340 mg capsule Andrés Titus AMLODIPINE BESYLATE 5 MG TABS 01/02 amlodipine 72709840054 Kailey Mendoza DNP,BODY TRIMMER UPHOLSTERER,TRASH COLLECTOR SUPERVISOR SINEMET 25-100 MG TABS 2 TABS TID. Do not take with food. 10/11 carbidopa-levodop a [id number] Chandra Rdz MD CARBIDOPA-LEVODOP A 25-100 MG TABS TAKE TWO TABLETS BY MOUTH THREE TIMES A DAY, DO NOT TAKE WITH FOOD 01/02 carbidopa-levodop a [id number] Chandra Rdz MD SINEMET 25-100 MG TABS 2 TABS TID. Do not take with food. 07/07 CARBIDOPA-LEVODOP A [id number] Chandra Rdz MD SINEMET 25-100 MG TABS 1TAB QD x 3 days, 1 TAB BID x 3 days, 1 TAB TID. Do not take with food. 07/07 CARBIDOPA-LEVODOP A [id number] Chandra Rdz MD CPAP autoCPAP, heated humidifier, mask, headgear, filters and tubing. Pressure: 4-15cm/H2O Length of Need: 99 07/09 CPAP Chandra Rdz MD SOTALOL HCL 80 MG TABS TAKE ONE TABLET BY MOUTH TWICE A DAY BEFORE MEALS 03/14 sotaloL (BETAPACE) 80 mg tablet 76305541475 Andrés Titus ROSUVASTATIN CALCIUM 20 MG TABS Take 1 tablet by mouth at bedtime. 01/02 rosuvastatin (CRESTOR) 20 mg tablet 79993304288 Andrés Titus PREDNISONE 20 MG TABS Take 3 tabs daily with food for 4 days, then 2 tabs daily for 4 days, and then 1 tab daily for 4 days. 03/14 predniSONE (DELTASONE) 20 mg tablet [id number] Andrés Titus NITROGLYCERIN 0.[address] 1 tablet under the tongue every 5 minutes if needed for Chest Pain. 03/14 nitroglycerin (NITROSTAT) 0.4 mg sublingual tablet [id number] Andrés Titus multivitamins-min erals-lutein (CERTAVITE SENIOR-ANTIOXIDAN T) 1 tablet. 03/14 multivitamins-min erals-lutein (CERTAVITE SENIOR-ANTIOXIDAN T) Andrés Titus LOSARTAN POTASSIUM 50 MG TABS Take 1 tablet by mouth once daily. 01/02 losartan (COZAAR) 50 mg tablet [id number] Andrés Titus LANSOPRAZOLE 30 MG CPDR TAKE ONE CAPSULE BY MOUTH DAILY 30 - 60 MINUTES BEFORE FOOD 03/14 lansoprazole (PREVACID) 30 mg capsule 85091381094 Andrés Titus KETOCONAZOLE 2 % SHAM Lather on damp scalp, leave on for 5min, then rinse with water one to two times a week. 01/02 ketoconazole 2% shampoo (NIZORAL) 2 % shampoo 15312939356 Andrés Titus glucosamine-chond roit-vit c-mn (GLUCOSAMINE 1500 COMPLEX) 50 Take 1 Cap by mouth 3 times daily. 03/14 glucosamine-chond roit-vit c-mn (GLUCOSAMINE 1500 COMPLEX) 50 Andrés Titus fish oil-omega-3 fatty acids 1,000-340 mg capsule Take 4000 mg daily 03/14 fish oil-omega-3 fatty acids 1,000-340 mg capsule Andrés Titus FEXOFENADINE HCL 180 MG TABS Take 1 tablet by mouth once daily. 02/27 fexofenadine (ERIKA) 180 mg tablet 75993507105 Andrés Titus ELIQUIS 5 MG TABS TAKE ONE TABLET BY MOUTH TWICE A DAY 03/14 ELIQUIS 5 mg tablet [id number] Andrés Titus CYCLOBENZAPRINE HCL 10 MG TABS Take 1 tablet by mouth 2 times daily if needed for Muscle Spasm. 03/14 cyclobenzaprine (FLEXERIL) 10 mg tablet [id number] Andrés Titus CPAP autoCPAP, heated humidifier, mask, headgear, filters and tubing. Pressure: 4-15cm/H2O Length of Need: 99 07/09 CPAP Andrés Titus BETAMETHASONE DIPROPIONATE 0.05 % LOTN Apply topically to affected area(s) 2 times daily. 03/14 betamethasone dipropionate 0.05% (DIPROSONE LOTION 0.05%) [id number] Andrés Titus AMLODIPINE BESYLATE 5 MG TABS Take 1 tablet by mouth once daily. 01/02 amLODIPine (NORVASC) 5 mg tablet [id number] Andrés Titus ALBUTEROL SULFATE HFA 108 (90 Base) MCG/ACT AERS Inhale 2 Puffs by mouth 4 times daily if needed. 03/14 albuterol HFA (PROAIR HFA) 90 mcg/actuation inhaler 02004367512 Andrés Titus ACETAMINOPHEN 500 MG TABS Typically takes 1000 mg PO TID, up to QID. 03/14 acetaminophen (TYLENOL EXTRA STRGTH) 500 mg tablet [id number] Andrés Titus Medications Administered No information available. Allergies, Adverse Reactions, Alerts Allergy Name Reaction Description Start Date Severity Statu s Provider SUNSCREEN *Unknown Mild Active Andrés Durham cki POTASSIUM AMINOBENZOATE *Unknown Mild Activ e Andrés Titus LOVASTATIN Myalgia Mild Active Andrés Pearce ecki LISINOPRIL Cough Mild Active Andrés Pearce ecamrita ATORVASTATIN Myalgia Moderate Active Andrés Myles arecki ADHESIVE Rash Moderate Active Andrés Durham cki Results Date Name Value Unit Range Flag Description Lab Report: 04/26/20 - 1 EGFR NOT AFA >60 mL/min/1. 73m2 Glomerular filtratio n rate/1.73 sq M.predicted among non-blacks [Volume Rate/Area] in Serum, Plasma or Blood by Creatinine-based formula (MDRD) CA 9.6 mg/dL Calcium [Mass /volume] in Serum or Plasma GFR >60 mL/min Glomerular fi ltration rate/1.73 sq M.predicted among non-blacks [Volume Rate/Area] in Serum, Plasma or Blood by Creatinine-based formula (MDRD) CO2 TOTAL 25 mmol/L carbon diox qing, serum, total GLUCOSE SER 93 mg/dL Glucose [ Mass/volume] in Serum or Plasma CRP 1.50 mg/dL C reactive pr otein [Mass/volume] in Serum or Plasma BUN/CREAT 18 Urea nitrogen/Creatinine [Mass Ratio] in Serum or Plasma SODIUM 142 mmol/L Sodium [Moles /volume] in Serum or Plasma URIC ACID 5.8 mg/dL Urate [Mass /volume] in Serum or Plasma SGPT (ALT) normal U/L Alanine aminotransferase [Enzymatic activity/volume] in Serum or Plasma POTASSIUM 3.5 mmol/L Potassium [Moles/volume] in Serum or Plasma CREATININE 0.83 mg/dL Creatinine [Mass/volume] in Serum or Plasma CHLORIDE 106 mmol/L Chloride [Moles/volume] in Serum or Plasma BUN 15 mg/dL Urea nitrogen [Mass/volume] in Serum or Plasma Office Visit: TREMOR, DYSKIN ESIA 07/09/20 08:38- 07/09/20 08:38 REFERRIN... SMOK STATUS former smoker Tobacco smoking status Internal Other: Verbal Autho rization/Emergency Contact - OBS VERBAL_EMER DONE Verbal au thorization and emergency contact Internal Other: Authorizatio n - OBS [id number] Yes GE use only - for [employer] import when terms are not otherwise specified Office Visit: Office Visit F ollow up fax MEDS REVIEW Done Documenta tion of current medications (procedure) Internal Other: Authorizatio n AUTHBENEFIT Yes Authoriza tion: Assignment of Benefits and Payment Agreement [email or web address] Yes Authorizat ion: Authorization for [facility] to leave messages, voicemail, send text messages, send emails AUTHRELHCARE Yes Authoriz ation: Release/Retrieval of Information to/from Healthcare Facilities, Pharmacy Benefit Payers and Providers ROIAUTHOTHER Yes Authoriz ation: Release of Information - Authorize Others/Insurance - Payment and Healthcare Operations [email or web address] Yes Authoriza tion: Release of Information - Authorize [facility] - Payment and Healthcare Operations AUTHPRIVPRAC Yes Authoriz ation: Notice of privacy practices HIECONSENT Yes Consent To Release information to the Health Information Exchange (HIE) Plan of Care Type Date Detail Appointment 11:00 AM Kailey kelley DNP,BODY TRIMMER UPHOLSTERER,TRASH COLLECTOR SUPERVISOR, [address], [address], [place], [address], Appointment 11:20 AM Simón Cali MD, [address], [address], [place], [address], Pending order Follow up Pending order Follow up Pending order Follow up VINEET Pending order Follow up VINEET Pending order Follow up VINEET Pending order Patient Instruct ions Pending order Speech Therapy Pending order Follow up VINEET Pending order Speech Therapy Pending order Follow up Pending order Follow up VINEET Pending order Speech Therapy Pending order Follow up in cli abbey or telemedicine with provider or VINEET Pending order Occupational The rapy Pending order Speech Therapy Pending order Follow up Pending order Follow up Pending order Obtain outside r ecords Pending order We will contact you with test results Pending order EMG bilateral up per ext Patient education Medications Procedures Code Procedure Name Date Entry Date ORDERS Follow up VINEET ORDERS Patient Instructions [id number] Complex e/m visit add on 202 10/29/30 ORDERS Speech Therapy ORDERS Follow up [id number] Documentation of current medicatio ns ORDERS Follow up VINEET ORDERS Follow up in clinic or telemedicine with provider or VINEET ORDERS Speech Therapy [id number] Documentation of current medicatio ns ORDERS Occupational Therapy ORDERS Speech Therapy ORDERS Follow up [id number] Documentation of current medicatio ns LOINC 18715-5 Fall risk assessment 10/08 ORDERS Follow up [id number] Documentation of current medicatio ns LOINC 20511-4 Fall risk assessment 09/01 ORDERS Obtain outside records 08/05 [id number] Documentation of current medicatio ns ORDERS We will contact you with test results 202 06/26/04 CPT-17000 Nerve Conduction 13 or more studies 07/29 CPT-73448 EMG with NCS (5+ muscles) - 2 limbs 07/29 ORDERS EMG bilateral upper ext 2020 LOINC 55375-8 Fall risk assessment 07/09 [id number] Documentation of current medicatio ns Vital Signs Date Name Value Unit Description Height 70 [in_us] height E&M Heart Rate 67 /min pulse rate BMI (Body Mass Index) 28.08 kg/m2 Bod y Mass Index (Ratio) Weight Measured 88.64 kg weight in kilograms E&M Weight Measured 195 [lb_av] weight E& M Weight Measured 195 [lb_av] weight E& M Body Temperature 36.61 [degF] temperat ure E&M BP Diastolic 72 mm[Hg] blood pressu re, diastolic BP Systolic 138 mm[Hg] blood pressur e, systolic Respiratory Rate 16 /min respirat ory rate E&M Immunizations No information available. Advance Directives No information available.
--- OUTSIDE RECORDS SUMMARY | 2025-05-20 20:59 | XMS_ITS | Patient Health Record ---
Author Organization [facility] Address [address] [place] [address] Care Team Providers Care Sports Marketing Internship Name Role Phone Norman Hali Primary Care Provider UnavailHILARY Case Unavailable [phone] Kirit Vieira Unavailable Unavailable Allergies Allergen (clinical drug ingredient) Drug/Non Drug Allergy documented on EMR Reaction Allergy Type Onset Date Status Adhesive Unknown Allergy Active lovastatin Lovastatin Unknown Drug Allergy Activ e Reason For Referral No Information Medications Medication SIG (Take, Route, Frequency, Duration) Notes Start Date End Date Status Carbidopa-Levodopa 25-100 MG Tablet TAKE TWO TABLETS BY MOUTH THREE TIMES A DAY, DO NOT TAKE WITH FOOD Oral; Duration: 30 Active Sotalol HCl 80 MG Tablet TAKE ONE TABLET BY MOUTH TWICE A DAY BEFORE MEALS Oral; Duration: 90 Active metroNIDAZOLE 0.75 % Cream APPLY A THIN LAYER TO ENTIRE FACE 1-2 TIMES DAILY. External; Duration: 30 Active Rosuvastatin Calcium 20 MG Tablet TAKE ONE TABLET BY MOUTH AT BEDTIME Oral; Duration: 90 Active Lansoprazole 30 MG Capsule Delayed Release TAKE ONE CAPSULE BY MOUTH EVERY DAY 30-60 MINUTES BEFORE FOOD Oral; Duration: 90 Active Eliquis 5 MG Tablet TAKE ONE TABLET BY MOUTH TWICE A DAY Oral; Duration: 90 Active Losartan Potassium 50 MG Tablet TAKE ONE TABLET BY MOUTH EVERY DAY Oral; Duration: 90 Active Cyclobenzaprine HCl 10 MG Tablet TAKE ONE TABLET BY MOUTH TWICE A DAY NEEDED FOR MUSCLE SPASM Oral; Duration: 30 Active amLODIPine Besylate 5 MG Tablet TAKE ONE TABLET BY MOUTH EVERY DAY Oral; Duration: 90 Active Social History Tobacco Use: Social History Observation Description Date Details (start date - stop date) Former Smoker NA - NA Social History Alcohol Use: Social Info Question Answer Notes Recreational drugs Recreational Drug Use: No Alcohol Screen Did you have a drink containing alcohol in the past year? Yes How often did you have a drink containing alcohol in the past year? 4 or more times a week (4 points) How many drinks did you have on a typical day when you were drinking in the past year? 1 or 2 drinks (0 point) How often did you have 6 or more drinks on one occasion in the past year? Never (0 point) Points 4 Interpretation Positive Tobacco Use: Social Info Question Answer Notes Tobacco use/smoking Are you a former smoker Plan Of Treatment No Information Insurance Providers Payer Name Payer Address Payer Phone Subscriber Number Group Number Insured Name Patient Relationship to Insured Coverage Start Date Coverage End Date MEDICARE [address] [place] [address] [id number] Tono Oneill Self - patient is the insured [employer] Secondary to Medicare [address] [place], [place] [id number] Tono Oneill Self - patient is the insured Medical (General) History Medical History History ICD Code Heart disease A-Fib Parkinsons Barretts Prostate CA hx CV19 Vaccine 09/14/2020 Surgical History Surgery Date(Month/Year) Ear surgery Rotator cuff bilateral Excision of Left Tongue Dysplasia STEFFANY 08/2020
--- OUTSIDE RECORDS SUMMARY | 2025-05-20 20:59 | XMS_ITS | Clinical Summary ---
Author Organization [facility] Address [address] [place] [address] Care Team Providers Care [employer] Name Role Phone Norman Hali LARKIN Primary Care Provider Felix Weber MD Unavailable Anant Canas MD Unavailable Allergies Active Allergy Reactions Criticality Noted Date Comments Aminobenzoate (Paba) 04/22/2019 Other reaction(s): *Unknown Atorvastatin Other (See Comments) Medium 01/25/2017 muscle pain Liquid Adhesive Rash Low 07/12/2016 Band aid adhesive Lisinopril Cough 08/11/2019 Lovastatin Muscle Pain (Myalgia),Other (See Comments) 07/12/2016 Lovastatin 40 mg was ineffective Sunscreens 04/22/2019 Other reaction(s): *Unknown Medications triamterene-hydroc hlorothiazide (MAXZIDE-25) 37.5-25 MG per tablet Take 1 tablet by mouth 7 Active apixaban ANTICOAGULANT (ELIQUIS) 5 MG tablet Take 5 mg by mouth 6 Active metoprolol (LOPRESSOR) 25 MG tablet Take 25 mg by mouth 7 Active Multiple Vitamin (MULTI VITAMIN DAILY PO) 2 Active nitroglycerin (NITROSTAT) 0.[address] 0.4 mg under the tongue 6 Active rosuvastatin (CRESTOR) 20 MG tablet Take 20 mg by mouth 6 Active traMADol (ULTRAM) 50 MG tablet 7 Active acetaminophen (TYLENOL) 325 MG tablet 4 Active albuterol (PROAIR HFA/PROVENTIL HFA/VENTOLIN HFA) 108 (90 Base) MCG/ACT inhaler Inhale 2 puffs into the lungs 4 Active cyclobenzaprine (FLEXERIL) 10 MG tablet Take 10 mg by mouth 7 Active fexofenadine (ERIKA) 180 MG tablet Take 180 mg by mouth 1 Active fish oil-omega-3 fatty acids 1000 MG capsule 3 Active LANsoprazole (PREVACID) 30 MG CR capsule 6 Active carbidopa-levodopa (SINEMET) 25-100 MG tablet TAKE TWO TABLETS BY MOUTH THREE TIMES A DAY, DO NOT TAKE WITH FOOD 2 Active sotalol (BETAPACE) 80 MG tablet Take 40 mg by mouth 2 times daily 2 Active amLODIPine (NORVASC) 5 MG tablet Take 10 mg by mouth daily at 2 pm 3 Active betamethasone dipropionate (DIPROSONE) 0.05 % external lotion Apply topically 2 times daily 2 Active fluticasone (FLONASE) 50 MCG/ACT nasal spray APPLY ONE TO TWO SPRAYS IN BOTH NOSTRILS TWICE A DAY FOR 14 DAYS 2 Active ketoconazole (NIZORAL) 2 % external shampoo LATHER ON DAMP SCALP, LEAVE ON FOR 5 MINUTES, THEN RINSE WITH WATER ONE TO TWO TIMES A WEEK. 3 Active losartan (COZAAR) 50 MG tablet Take 1 tablet by mouth daily at 2 pm 3 Active LYCOPENE PO Take 1 tablet by mouth Active pantoprazole (PROTONIX) 40 MG EC tablet 2 Active megestrol (MEGACE) 20 MG tabletIndications: Prostate cancer (H) Take 1 tablet (20 mg) by mouth daily 90 tablet 3 3 Active Active Problems Problem Noted Date Diagnosed Date Dyslipidemia 12/11/2022 12/11/2022 Obesity 12/11/2022 12/11/2022 Dysplasia of tongue 07/29/2021 12/11/2022 Overview (12/11/2022): Excision with ENT 06/14 Inflammatory spondylopathy of lumbar region 01/2412/11/2022 Inguinal hernia, left 09/17/2018 12/11/2022 Ellis's esophagus 06/26/2018 12/11/2022 Overview (12/11/2022): EGD 05/2018 Ellis's, repeat EGD in 3 years EGD 03/2022 Ellis's repeat EGD in 3 years Cervical stenosis of spine 05/29/201712/11 Degenerative disc disease, cervical 05/29/2017 12/11/2022 Osteophyte of cervical spine 05/29/2017 BERNARDO (obstructive sleep apnea) 05/30/2016 Atrial fibrillation 04/12/2016 12/11/2022 Prostate cancer 01/31/2016 12/11/2022 Pre-diabetes 03/11/2015 12/11/2022 Hematuria 01/29/2014 12/11/2022 Retention of urine 01/29/2014 12/11/2022 Hyperlipidemia 11/15/2013 12/11/2022 Unstable angina 11/15/2013 12/11/2022 Chest pain 11/14/2013 12/11/2022 Coronary atherosclerosis 11/14/2013 023 Overview (12/11/2022): -Stenting to OM1 1996 -Coronary angiogram 2002 - no significant stenosis, stent patent, ejection fraction 60% Stenting OM1, OM2, and RCA with KAPIL January 11/2013 Angiogram November 2003 All stents patent Hypertension 11/14/2013 12/11/2022 Colon polyps 07/16/2013 12/11/2022 Overview (12/11/2022): Colonoscopy 04/2018 polyp, repeat in 5 years Benign neoplasm of colon 07/09/2009 023 Overview (12/11/2022): -Colonoscopy 06/2009 polyps, repeat in 3 years Colonoscopy 04/2018 polyp, repeat in 5 years M ni re's disease 12/21/2008 12/11/2022 GERD (gastroesophageal reflux disease) 6 12/11/2022 Overview (12/11/2022): -EGD 08/2010 Ellis's, repeat EGD in 3 years EGD 03/2022 Ellis's repeat EGD in 3 years Lumbago 06/17/2006 12/11/2022 Overview (12/11/2022): takes ibuprofen Immunizations Immunization Administration Dates Next Due COVID-19 MONOVALENT 12+ (Pfizer) 03/24/2021,08/24,08/24/2020 Flu 65+ (Fluad) 04/05/2020 Influenza (High Dose) Trival ent,PF (Fluzone) 04/08/2019,04/05/2019,04/24/2018,2016,05/12/2016,04/28/2015,04/21/2014,1 06/25/2012 Influenza (IIV3) PF 04/30/2013, 2,04/06/2011,2007,05/08/2007,05/24/2006,04/14/2005 Influenza (prior to 2023) 04/30/2013,05/16/2010, 04/20/2009 Influenza Vaccine 65+ (FLUAD) 04/14/2022, 021,04/05/2020 Pneumo Conj 13-V (2010&after) 05/12/2016 Pneumococcal 23 valent 05/25/2012,02/24/2012, TDAP (Adacel,Boostrix) 04/17/2017,04/14/2005 Zoster recombinant adjuvante d (Shingrix) 05/25/2020,01/08/2020 Zoster vaccine, live 05/25/2012 Family History Relation Status Comments Father Mother Social History Tobacco Use Types Packs/Day Years Used Date Smoking Tobacco: Former Smokeless Tobacco: Never Tobacco Cessation:Counseling Given: Not Answered Comments:quit 25 years ago Alcohol Use Standard Drinks/Week Comments Yes 0 (1 standard drink = 0.6 oz pur e alcohol) PHQ-2 Answer Date Recorded PHQ-2 Score 0 12/29/2021 Adolescent Education Answer Date Record ed Getting School Help Needed Not on file 03/29 Sex and Gender Information Value Date Recorded Sex Assigned at Not on file Legal Sex Male 3:53 AM DISPATCH LEAD Gender Identity Not on file Sexual Orientation Not on file Last Filed Vital Signs Vital Sign Reading Time Taken Comments Blood Pressure 157/87 07/05/2023 8:08 AM DISPATCH LEAD Pulse 62 12/19/2022 7:59 AM CDT Temperature - - Respiratory Rate - - Oxygen Saturation 96% 12/11/2022 1:56 PM CDT Inhaled Oxygen Concentration - - Weight 105.7 kg (233 lb) 07/05/2023 8:08 AM DISPATCH LEAD Height 180.3 cm (5' 11) 07/05/2023 8:08 AM DISPATCH LEAD Body Mass Index 32.5 07/05/2023 8:08 AM DISPATCH LEAD Plan of Treatment Health Maintenance Due Date Last Done Comments ADVANCE CARE PLANNING 1941 ANNUAL REVIEW OF HM ORDERS 1941 BMP 1941 LIPID 1941 FALL RISK ASSESSMENT 2006 MEDICARE ANNUAL WELLNESS VISIT 2006 PHQ-2 (once per calendar year) 2024 12/29/2021, 10/25/2020, 11/20/2019, Additional history exists COVID-19 VACCINE ( season) 2025 05/07/2023, 04/07/2022, 01/03/2022, Additional history exists INFLUENZA VACCINE (#1) 2025 , 04/14/2022, 04/08/2021, Additional history exists DTAP/TDAP/TD VACCINE (3 - Td or Tdap) 04/17/2027 04/17/2017, 04/14/2005 PNEUMOCOCCAL VACCINE 50+ YEARS Completed 05/12/2016, 05/25/2012, 02/24/2012, Additional history exists ZOSTER VACCINE Completed 05/25/2020, 12/23, 05/25/2012 LUNG CANCER SCREENING Discontinued 12/29/2022, 017 RSV VACCINE Completed 06/07/2023 HPV VACCINE (No Doses Required) Completed MENINGITIS VACCINE Aged Out No longer eligible based on patient's age to complete this topic Procedures Procedure Name Priority Date/Time Associated Diagnosis Comments CT CHEST/ABDOMEN/PELVI S W CONTRAST Routine 12/29/2022 4:24 PM CDT Prostate cancer (H) from Last 3 Months or Most Recently Relevant to Health Maintenance Results * CT Chest/Abdomen/Pelvis w Contrast (12/29/2022 4:24 PM CDT) Anatomical Region Laterality Modality Abdomen/Pelvis, Chest, SUBRA D CT BODY, UMP CT CHEST, UMP CT ABDOMEN PELVIS, RAD CT Positron Emission Tomography (PET) Impressions 01/02/2023 9:14 AM CDT IMPRESSION: G68 PSMA PET CT shows: 1. 3.1 x 1.4 x 2.4 cm solid lesion within the right posterior inferior aspect of the peripheral zone of the prostate gland with associated intense radiotracer uptake compatible with malignancy. 2. 7 mm right pelvic sidewall lymph node demonstrate mild/moderate radiotracer uptake, worrisome for metastasis. 3. No findings to suggest distant metastasis. 4. Near-complete opacification of the right maxillary sinus with debris/mucosal thickening can be seen with sinusitis in the correct clinical setting. BE SURE TO ADD SUV Mean TO CALCULATED UPTAKE MEASUREMENTS. Reference - PSA level and corresponding PSMA sensitivity 0.2-0.49 33% 0.5-0.99 45% 1.0-1.99 75% >2.00 95% Source - Alta et al. Gallium-68 Prostate-specific Membrane Antigen Positron Emission Tomography in Advanced Prostate Cancer?Updated Diagnostic Utility, Sensitivity, Specificity, and Distribution of Prostate-specific Membrane Antigen-avid Lesions: A Systematic Review and [place]-analysis. Urology September 2019. --------- I have personally reviewed the examination and initial interpretation and I agree with the findings. EZEKIEL LAMB MD Narrative 01/02/2023 9:14 AM CDT Combined Report of: PET and CT on 12/29/2022 4:24 PM : 1. PET of the neck, chest, abdomen, and pelvis. 2. PET CT Fusion for Attenuation Correction and Anatomical Localization: Images were evaluated in axial, coronal, and sagittal planes in bone, soft tissue, and lung windows. 3. 3D MIP and PET-CT fused images were processed on an independent workstation and archived to PACS and reviewed by a radiologist. Technique: 1. PET: The patient received 5.24 mCi of Ga68 PSMA, body weight was 102.1 kg. Images were evaluated in the axial, sagittal, and coronal planes as well as the rotational whole body MIP. Images were acquired from the Vertex to the Proximal Thighs. 2. CT: Volumetric acquisition for attenuation correction and anatomical localization. 3. diagnostic IV iodinated contrast CT chest abdomen pelvis (135 cc IV Isovue 370). INDICATION: Prostate cancer (H) ADDITIONAL INFORMATION OBTAINED FROM EMR: Patient with history of prostate cancer (initial diagnosis Gl 3+3=6 in 2013 on active surveillance, now with rising PSA to 7.0, repeat biopsy 12/11/2022 with Yared 5+4=9 prostate cancer), BPH with LUTS COMPARISON: MRI 11/09/2022 and 10/20/2013. FINDINGS: Liver SUV= max SUV 6.73, mean SUV 5.68 , Aorta SUV: Max SUV 1.92, mean SUV 1.27 HEAD/NECK: There is no suspicious uptake in the neck. Near-complete opacification of the right maxillary sinus with debris/mucosal thickening. Mild additional scattered ethmoid air cell mucosal thickening. CHEST: There is no suspicious PSMA uptake in the chest. Normal-appearing thyroid. Heart size is within normal limits. No pericardial effusion. Normal diameters of the main pulmonary artery and thoracic aorta with moderate scattered atherosclerotic calcification. Severe calcification of the coronary arteries, including the LAD. No mediastinal, axillary, or hilar lymphadenopathy. Patent thoracic esophagus. ABDOMEN AND PELVIS: There is no suspicious PSMA activity within the abdomen. There is a 3.1 x 1.4 x 2.4 cm nodular density in the right posteroinferior peripheral zone of the prostate gland with associated intense tracer uptake (SUV max 23, mean SUV 14); series 10 image 119-120. Previously, this nodule measured up to 3.1 cm on MRI (11/09/2022). There is a right pelvic sidewall 7 mm lymph node (series 10 image 109), unchanged since MRI 11/09/2022, with max SUV 4.3(mean SUV 2.5). The liver, gallbladder, spleen, adrenal glands, large and small bowel, the appendix, mesentery, pancreas, and stomach are unremarkable. Bilateral nonsuspicious simple cortical renal cysts. Bilateral renal cortical thinning and defects. No hydronephrosis. Normal symmetric bilateral renal cortical enhancement. Small fat-containing umbilical hernia. The bladder is mostly decompressed. No significant pelvic free fluid. Pelvic phleboliths. Moderate/advanced aortoiliac atherosclerotic disease. BONES: There is no abnormal PSMA uptake in the skeleton. Moderate/severe degenerative changes throughout the visualized spine, including multilevel thoracic prominent anterior/anterolateral osteophyte formation. No acute osseous abnormality. No aggressive or suspicious osseous or soft tissue lesion identified. Procedure Note Ezekiel Lamb MD - 01/02/2023 Combined Report of: PET and CT on 12/29/2022 4:24 PM : 1. PET of the neck, chest, abdomen, and pelvis. 2. PET CT Fusion for Attenuation Correction and Anatomical Localization: Images were evaluated in axial, coronal, and sagittal planes in bone, soft tissue, and lung windows. 3. 3D MIP and PET-CT fused images were processed on an independent workstation and archived to PACS and reviewed by a radiologist. Technique: 1. PET: The patient received 5.24 mCi of Ga68 PSMA, body weight was 102.1 kg. Images were evaluated in the axial, sagittal, and coronal planes as well as the rotational whole body MIP. Images were acquired from the Vertex to the Proximal Thighs. 2. CT: Volumetric acquisition for attenuation correction and anatomical localization. 3. diagnostic IV iodinated contrast CT chest abdomen pelvis (135 cc IV Isovue 370). INDICATION: Prostate cancer (H) ADDITIONAL INFORMATION OBTAINED FROM EMR: Patient with history of prostate cancer (initial diagnosis Gl 3+3=6 in 2013 on active surveillance, now with rising PSA to 7.0, repeat biopsy 12/11/2022 with Yared 5+4=9 prostate cancer), BPH with LUTS COMPARISON: MRI 11/09/2022 and 10/20/2013. FINDINGS: Liver SUV= max SUV 6.73, mean SUV 5.68 , Aorta SUV: Max SUV 1.92, mean SUV 1.27 HEAD/NECK: There is no suspicious uptake in the neck. Near-complete opacification of the right maxillary sinus with debris/mucosal thickening. Mild additional scattered ethmoid air cell mucosal thickening. CHEST: There is no suspicious PSMA uptake in the chest. Normal-appearing thyroid. Heart size is within normal limits. No pericardial effusion. Normal diameters of the main pulmonary artery and thoracic aorta with moderate scattered atherosclerotic calcification. Severe calcification of the coronary arteries, including the LAD. No mediastinal, axillary, or hilar lymphadenopathy. Patent thoracic esophagus. ABDOMEN AND PELVIS: There is no suspicious PSMA activity within the abdomen. There is a 3.1 x 1.4 x 2.4 cm nodular density in the right posteroinferior peripheral zone of the prostate gland with associated intense tracer uptake (SUV max 23, mean SUV 14); series 10 image 119-120. Previously, this nodule measured up to 3.1 cm on MRI (11/09/2022). There is a right pelvic sidewall 7 mm lymph node (series 10 image 109), unchanged since MRI 11/09/2022, with max SUV 4.3(mean SUV 2.5). The liver, gallbladder, spleen, adrenal glands, large and small bowel, the appendix, mesentery, pancreas, and stomach are unremarkable. Bilateral nonsuspicious simple cortical renal cysts. Bilateral renal cortical thinning and defects. No hydronephrosis. Normal symmetric bilateral renal cortical enhancement. Small fat-containing umbilical hernia. The bladder is mostly decompressed. No significant pelvic free fluid. Pelvic phleboliths. Moderate/advanced aortoiliac atherosclerotic disease. BONES: There is no abnormal PSMA uptake in the skeleton. Moderate/severe degenerative changes throughout the visualized spine, including multilevel thoracic prominent anterior/anterolateral osteophyte formation. No acute osseous abnormality. No aggressive or suspicious osseous or soft tissue lesion identified. IMPRESSION: G68 PSMA PET CT shows: 1. 3.1 x 1.4 x 2.4 cm solid lesion within the right posterior inferior aspect of the peripheral zone of the prostate gland with associated intense radiotracer uptake compatible with malignancy. 2. 7 mm right pelvic sidewall lymph node demonstrate mild/moderate radiotracer uptake, worrisome for metastasis. 3. No findings to suggest distant metastasis. 4. Near-complete opacification of the right maxillary sinus with debris/mucosal thickening can be seen with sinusitis in the correct clinical setting. BE SURE TO ADD SUV Mean TO CALCULATED UPTAKE MEASUREMENTS. Reference - PSA level and corresponding PSMA sensitivity 0.2-0.49 33% 0.5-0.99 45% 1.0-1.99 75% >2.00 95% Source - Alta et al. Gallium-68 Prostate-specific Membrane Antigen Positron Emission Tomography in Advanced Prostate Cancer?Updated Diagnostic Utility, Sensitivity, Specificity, and Distribution of Prostate-specific Membrane Antigen-avid Lesions: A Systematic Review and [place]-analysis. Urology September 2019. --------- I have personally reviewed the examination and initial interpretation and I agree with the findings. EZEKIEL LAMB MD us Felix Weber MD IMG CT ORDERABLES Final Resul t from Last 3 Months or Most Recently Relevant to Health Maintenance Insurance [facility] Care Teams [employer] Relationship Specialty Start Date End Date Hali Austin NP [address] [place] [address] [place] [address] PCP - General 07/12/16 Felix Weber MD [address] [place] [address] Urology 09/19/21 Anant Canas MD [address] [place] [address] Urology 12/22/22
--- OUTSIDE RECORDS SUMMARY | 2025-05-20 20:59 | XMS_ITS | Encounter Summary ---
Author Organization [facility] Address [address] [place] [address] [address] [place] [address] Care Team Providers Care Piercing Artist Name Role Phone Provider, No Attributed RESOURCE Unavailable Unavailable Pcp, No MD Primary Care Provider Unavailabl e Encounter Details Date Type Department Care Team (Late st Contact Info) Description 10/21/2020 Lab Requisition [place] [address] Scar Gonsalez MD Elevated prostate specific antigen (PSA); Personal history of malignant neoplasm of prostate; Malignant neoplasm of prostate (HCC) Social History Tobacco Use Types Packs/Day Years Used Date Smoking Tobacco: Never Smokeless Tobacco: Never Alcohol Use Standard Drinks/Week Comments No 0 (1 standard drink = 0.6 oz pur e alcohol) Sex and Gender Information Value Date Recorded Sex Assigned at Not on file Legal Sex Male 5:08 AM CDT Gender Identity Not on file Sexual Orientation Not on file documented as of this encounter Functional Status * Is the person deaf or does he/she have serious difficulty hearing? Answer Date of Assessment Author No 01/29/2014 11:23 PM Stephanie Brennan APRN-CNP * Is this person blind or does he/she have difficulty seeing even when wearing glasses? Answer Date of Assessment Author No 01/29/2014 11:23 PM Stephanie Brennan APRN-CNP * Do you have difficulty with walking, balance, climbing stairs, or had a fall in the last 3 months? Answer Date of Assessment Author No 01/29/2014 11:23 PM Stephanie Brennan APRN-CNP * Does the patient have difficulty dressing or bathing? Answer Date of Assessment Author No 01/29/2014 11:23 PM CDT Stephanie Juan APRN-CNP * Because of a physical, mental, or emotional condition; does this person have difficulty doing errands alone such as visiting a doctor's office or shopping? Answer Date of Assessment Author No 01/29/2014 11:23 PM CDT Stephanie Juan APRN-CNP documented as of this encounter Mental Status * Because of a physical, mental, or emotional condition; does this person have serious difficulty concentrating, remembering, or making decisions? Answer Entry Date Author No 01/29/2014 11:23 PM CDT Stephanie Juan APRN-CNP documented in this encounter Plan of Treatment Not on file documented as of this encounter Procedures Procedure Name Priority Date/Time Associated Diagnosis Comments PSA, TOTAL Routine 10/21/2020 2:07 PM CDT Elevated prostate specific antigen (PSA) Personal history of malignant neoplasm of prostate Malignant neoplasm of prostate (HCC) documented in this encounter Results * PSA (10/21/2020 2:07 PM CDT) PSA 4.24 0.00 - 6.50 ng/mL 10/21/2020 4:32 PM CDT [facility] Blood BLOOD SPECIMEN / Unknown Venipuncture / Unknown 10/21/2020 2:07 PM CDT 10/21/2020 2:08 PM CDT Narrative [facility] - 10/21/2020 4:32 PM CDT PSA was measured using the Peterson method. Results measured using different testing methods cannot be directly compared. If used post prostate cancer treatment, reference range may not be applicable and should be discussed with provider. us Scar Gonsalez MD LAB BLOOD Final Result [facility] [address] [place] [address] documented in this encounter Visit Diagnoses Diagnosis Elevated prostate specific antigen (PSA) Personal history of malignant neoplasm of prostate Malignant neoplasm of prostate (HCC) Malignant neoplasm of prostate documented in this encounter Care Teams Piercing Artist Relationship Specialty Start Date End Date Provider, No Attributed, RESOURCE [address] PCP - Attributed Provider 11/1/16 Pcp, No, You have no PCP on file PCP - General 05/19/19 10/21/24 documented as of this encounter
--- OUTSIDE RECORDS SUMMARY | 2025-05-20 20:59 | XMS_ITS | Clinical Summary ---
Author Organization [facility] Address [address] [place] [address] [address] [place] [address] Care Team Providers Care Vaccine Manager Name Role Phone Provider, No Attributed RESOURCE Unavailable Unavailable Allergies Active Allergy Reactions Criticality Noted Date Comments Adhesives Rash 12/22/2016 Aminobenzoate Unknown/Not Verified 04/22/2019 Atorvastatin Other (Specify in Comments) Medium 01/25/2017 muscle pain Lisinopril Cough 08/11/2019 Lovastatin Other (Specify in Comments) 02/10/2017 Joint pain Lovastatin 40 mg was ineffectiveLovastatin 40 mg was ineffective Joint pain Medications lansoprazole (PREVACID) 30 mg capsule Take by mouth 1 time a day in the morning. Active fexofenadine (ERIKA) 60 mg tablet Take 180 mg by mouth 1 time per day Uses 30 mg daily Active acetaminophen (TYLENOL) 500 mg tablet Take 1,000 mg by mouth 3 times a day. Active omega-3 fatty acids (FISH OIL) 1000 mg capsule Take 1,000 mg by mouth 1 time per day. Active traMADol (ULTRAM) 50 mg tablet Take 50 mg by mouth 2 times a day Active rosuvastatin (CRESTOR) 20 mg tablet Take 20 mg by mouth every night at bedtime Active apixaban (ELIQUIS) 5 MG tablet Take 5 mg by mouth 2 times a day Active hydroCHLOROthiaz qing 25 mg tablet Take 12.5 mg by mouth 1 time per day Active Multiple Vitamins-Mineral s (CERTA-FRED SENIOR-ANTIOXIDA NT) tablet Take 1 tablet by mouth 1 time per day Active triamterene-hydr ochlorothiazide (MAXZIDE-25) 37.5-25 mg tablet Take 1 tablet by mouth 1 time per day Active metoprolol tartrate (LOPRESSOR) 25 mg tablet Take 25 mg by mouth 2 times a day Active dutasteride (AVODART) 0.5 MG capsule Take 0.5 mg by mouth 1 time per day Active nitroglycerin (NITROSTAT) 0.4 mg sublingual tablet Dissolve 0.4 mg under the tongue 8 Active traMADol (ULTRAM) 50 mg tabletIndication s:Cellulitis of left leg Take 1 tablet (50 mg) by mouth 4 times a day as needed for severe pain 12 tablet 8 Active Additional Information Patient not taking.Reason: By Patient, Reported on 08/06/2021 predniSONE 20 mg tabletIndication s:Acute gout, unspecified cause, unspecified site Take 2 tablets by mouth daily for 5 days 10 tablet 03/31/2020 11:47 AM CDT 0 Active Additional Information Patient not taking.Reason: By Patient, Reported on 08/06/2021 Active Problems Problem Noted Date Diagnosed Date Urinary retention 01/29/2014 Hematuria 01/29/2014 Family History Medical History Relation Comments Diabetes Neg Hx Heart Disease Neg Hx Not otherwise listed - Cancer Neg Hx Social History Tobacco Use Types Packs/Day Years [...] Sign Reading Time Taken Comments Blood Pressure 116/72 08/06/2021 10:56 AM DIRECTOR OF VOCATIONAL GUIDANCE Pulse 63 08/06/2021 10:56 AM DIRECTOR OF VOCATIONAL GUIDANCE Temperature 35.9 C (96.7 F) 08/06/2021 10:56 AM DIRECTOR OF VOCATIONAL GUIDANCE Respiratory Rate 14 05/19/2018 10:0 9 AM DIRECTOR OF VOCATIONAL GUIDANCE Oxygen Saturation 97% 08/06/2021 10: 56 AM DIRECTOR OF VOCATIONAL GUIDANCE Inhaled Oxygen Concentration - - Weight 101.3 kg (223 lb 6.4 oz) 022 10:56 AM DIRECTOR OF VOCATIONAL GUIDANCE Height 180.3 cm (5' 11) 02/13/2017 2:14 PM CDT Body Mass Index 31.16 02/13/2017 2:14 PM CDT Plan of Treatment Health Maintenance Due Date Last Done Comments TDAP/TD VACCINE (1 - Tdap) 1962 Pneumococcal Vaccine 50yr + (1 of 1 - PCV) 12/18/1991 Zoster Vaccine (1 of 2) 12/18/1991 RSV Vaccine, Adult (1 - 1-dose 75+ series) 2016 Covid-19 Vaccine (3 - 2024- season) 2025 09/14/2020, 08/24/2020 Influenza Vaccine (#1) 2025 , 04/30/2013, 05/07/2008, Additional history exists Diabetes Screening 10/05/2027 10/04/2024, 0 10/03/2024, 09/30/2024, Additional history exists Hepatitis B Vaccine Aged Out No longe r eligible based on patient's age to complete this topic Procedures Procedure Name Priority Date/Time Associated Diagnosis Comments BASIC METABOLIC PANEL STAT 05/19/2018 10:45 AM DIRECTOR OF VOCATIONAL GUIDANCE from Last 3 Months or Most Recently Relevant to Health Maintenance Results * (ABNORMAL) BASIC METABOLIC PANEL (05/19/2018 10:45 AM DIRECTOR OF VOCATIONAL GUIDANCE) Glucose 140(H) 70 - 100 mg/dL 05/19/2018 11:05 AM [facility] BUN 19 6 - 22 mg/dL 05/19/2018 11:05 AM [facility] Creatinine 0.91 0.80 - 1.30 mg/dL 05/19/2018 11:05 AM [facility] BUN/Creatinine Ratio 20.9 10.0 - 25.0 05/19/2018 11:05 AM [facility] Sodium 138 135 - 145 meq/L 05/19/2018 11:05 AM [facility] Potassium 3.5 3.5 - 5.3 meq/L 05/19/2018 11:05 AM [facility] Chloride 103 99 - 110 meq/L 05/19/2018 11:05 AM [facility] CO2 24 23 - 32 meq/L 05/19/2018 11:05 AM [facility] Anion Gap with K 15 6 - 20 meq/L 05/19/2018 11:05 AM [facility] Calcium 9.6 8.5 - 10.5 mg/dL 05/19/2018 11:05 AM [facility] Age 77 Years 05/19/2018 11:05 AM [facility] eGFR Non- 81 >=60 mL/min/1. 73m2 05/19/2018 11:05 AM [facility] eGFR >90 >=60 mL/min/1. 73m2 05/19/2018 11:05 AM [facility] Comment: The estimated Glomerular Filtration Rate (eGFR) is calculated using the Abbreviated Modification of Diet in Renal Disease (MDRD) equation. The eGFR is reported out in mL/min. per 1.73 meter squared units. The National Kidney Foundation action value for patients without a diagnosis of chronic kidney disease is a eGFR of < 60 mL/min per 1.73M2. The National Kidney Foundation stages listed below apply to patients with a diagnosis of chronic kidney disease (defined as either kidney damage or eGFR <60 mL/min/1.73 m2 for 3 months). Kidney damage is defined as pathologic abnormalities or markers of damage, including abnormalities in blood or urine tests or imaging studies. These stages apply to adults. No standardized classification has yet been established for pediatric patients. Stage eGFR in ml/min per 1.73M2 1 Kidney abnormality with normal or increased eGFR >or=90 2 Kidney abnormality with mild decreased eGFR 60-89 3 Moderately decreased eGFR 30-59 4 Severely decreased eGFR 15-29 5 Kidney failure <15 The eGFR varies with age, sex, race and body size and normally decreases with age. 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
--- OUTSIDE RECORDS SUMMARY | 2025-05-20 20:59 | XMS_ITS | Encounter Summary ---
Author Organization [facility] Address [address] [place] [address] Care Team Providers Care Aerial Erector Name Role Phone Unavailable Primary Care Provider Unavailabl e Reason for Visit * Reason Onset Date Comments Communication 04/20/2025 Blood in urine Encounter Details Date Type Department Care Team (Latest Contact Info) Description 04/20/2025 Clinical Communication Department of Urology in [place], [place] [address] [phone] Nia Nelson, CHACE, C.N.P. [address] [phone] Communication (Blood in urine) Social History Tobacco Use Types Packs/Day Years Used Date Smoking Tobacco: Former Cigarettes Smokeless Tobacco: Never Alcohol Use Standard Drinks/Week Comments Yes 3 (1 standard drink = 0.6 oz pur e alcohol) [facility] Utilities Answer Date Recorded In the past 12 months has [facility] [employer], gas, oil, or water [employer] threatened to shut off services in your home? No 01/09/2025 Hunger Vital Sign Answer Date Recorded Within the past 12 months, y ou worried that your food would run out before you got the money to buy more. Never true 01/10/20 25 Within the past 12 months, t he food you bought just didn't last and you didn't have money to get more. Never true 01/09/2025 PRAPARE - Transportation Answer Date Re corded In the past 12 months, has l ack of transportation kept you from medical appointments or from getting medications? No 12/23 In the past 12 months, has l ack of transportation kept you from meetings, work, or from getting things needed for daily living? No 01/09/2025 Housing Stability Answer Date Recorded What is your living situation today? [facility] 01/09/2025 Sex and Gender Information Value Date Recorded Sex Assigned at Male 01/09/2025 10:39 AM CDT Legal Sex Male 9:30 PM LOG YARD DERRICK OPERATOR Gender Identity Male 01/09/2025 10:39 AM CDT Sexual Orientation Straight 01/09/2025 10 :39 AM CDT documented as of this encounter Miscellaneous Notes * Telephone Encounter - Latonia Givens R.N. - 04/20/2025 4:49 PM CDT Patient contacted and stated that he had blood in his brief in between urinating. He reports no signs or symptoms of infection.Informed that patient should monitor and if blood appears in his urine with symptoms of infection he should contact us. Patient verbalized understanding. documented in this encounter Plan of Treatment Upcoming Encounters Date Type Department Care Team (Late st Contact Info) Description 07/10/2025 10:30 AM LOG YARD DERRICK OPERATOR Appointment Department of Laboratory Medicine in [place] [address] [place] [address] Nia Nelson APRN, C.N.P. [address] [place] [phone] 07/14/2025 3:00 PM LOG YARD DERRICK OPERATOR Office Visit Department of Urology in [place], [place] [address] [place] [address] Nia Nelson APRN, C.N.P. [address] [place] [phone] documented as of this encounter Visit Diagnoses Not on filedocumented in this encounter
--- OUTSIDE RECORDS SUMMARY | 2025-05-20 20:59 | XMS_ITS | Clinical Summary ---
Author Organization [facility] Address [address] [place] [address] Care Team Providers Care Expressive Art Therapist Name Role Phone Unavailable Primary Care Provider Unavailabl e Source Comments Patient records contain information from all sites at [facility]. For routine questions regarding patient records, call [phone] during business hours, M-F 8:00 AM - 5:00 PM Central Time. Record requests for emergency care only can be directed to [phone] at any time.[facility] Allergies Active Allergy Reactions Criticality Noted Date Comments Adhesive Rash Medium 01/01/2013 Band aid adhesive Adhesive Tape-Silicones Rash Medium 11/15/2013 Atorvastatin Other (see comments),Myalg ia Medium 01/25/2017 muscle pain Gum Qvjedl-Rilbky-Yans-A lcohol Rash Low 07/12/2016 Band aid adhesive Lisinopril Cough 08/11/2019 Lovastatin Myalgia,Other (see comments) 01/12/2015 Joint pain Lovastatin 40 mg was ineffectiveLovastatin 40 mg was ineffective Joint pain Lovastatin 40 mg was ineffective Joint pain Lovastatin 40 mg was ineffective Potassium Aminobenzoate Other (see comments) 04/22/2019 Sunscreen Other (see comments) 04/22/2019 Medications albuterol 90 mcg/actuation inhaler Inhale 2 puffs 4 (four) times a day as needed. 4 Active amLODIPine (NORVASC) 10 mg tablet Take 10 mg by mouth. 3 Active apixaban (Eliquis) 5 mg tablet Take 1 tablet by mouth 2 (two) times a day. 6 Active betamethasone dipropionate (DIPROLENE) 0.05 % lotion Apply topically 2 (two) times a day. 2 Active carbidopa-levodo pa (SINEMET) 25-100 mg per tablet TAKE TWO TABLETS BY MOUTH THREE TIMES A DAY, DO NOT TAKE WITH FOOD 1 Active cyclobenzaprine (FLEXERIL) 10 mg tablet Take 1 tablet by mouth 2 (two) times a day as needed. 7 Active fexofenadine (ERIKA) 180 mg tablet Take 1 tablet by mouth daily. 1 Active fluticasone propionate (FLONASE) 50 mcg/actuation nasal spray As needed 2 Active ketoconazole (NIZORAL) 2 % shampoo LATHER ON DAMP SCALP, LEAVE ON FOR 5 MINUTES, THEN RINSE WITH WATER ONE TO TWO TIMES A WEEK. 7 Active lansoprazole (PREVACID) [address] capsule TAKE ONE CAPSULE BY MOUTH EVERY DAY 30-60 MINUTES BEFORE FOOD 6 Active losartan (COZAAR) 50 mg tablet Take 1 tablet by mouth daily. 3 Active metoprolol tartrate (LOPRESSOR) 25 mg tablet Take 25mg tablet if onset of a-fib/flutter. Ok to take 2nd dose of 25mg 30min later. If not back in normal rhythm, Pt. Needs to seek ED attention. 7 Active omega-3 fatty acids-fish oil 340-1,000 mg per capsule Take 4000 mg daily 3 Active LYCOPENE ORAL Take 1 tablet by mouth. Active sotaloL (BETAPACE) 80 mg tablet Take 40 mg by mouth. 2 Active rosuvastatin (CRESTOR) 20 mg tablet Take 1 tablet by mouth at bedtime. 6 Active nitroglycerin (NITROSTAT) 0.[address] 0.4 mg under the tongue every 2 (two) hours as needed. 6 Active multivitamin (MULTIPLE VITAMINS ORAL) 2 Active metroNIDAZOLE (METROCREAM) 0.75 % cream APPLY A THIN LAYER TO ENTIRE FACE 1-2 TIMES DAILY. 1 Active glucosamine-tomas droit-vit C-Mn 500-400 mg per capsule Take 1 capsule by mouth. 8 Active acetaminophen (TYLENOL) 500 mg tablet Typically takes 1000 mg PO TID, up to QID. 9 Active polyethylene glycol-electroly clau (GoLYTELY) 236-22.74-6.74 -5.86 gram solution Drink 2 liters (half the bottle) the day before colonoscopy and 2 liters (remaining prep) 6 hours prior to colonoscopy appointment. 3 Active magnesium citrate 100 mg capsule Take 1 capsule by mouth 2 (two) times a day. Active calcium citrate-vitamin D3 (Citracal + D3) 250 mg-5 mcg (200 Unit) per tablet Take 2 tablets by mouth daily with morning meal. Active entacapone (Comtan) 200 mg tablet TAKE ONE TABLET BY MOUTH THREE TIMES A DAY TAKE ALONG WITH CARBIDOPA/LEVOD OPA 4 Active sildenafiL (Viagra) 100 mg tabletIndication s:Dysfunction Erectile Following Radiation Therapy Take 1 tablet (100 mg total) by mouth daily as needed for erectile dysfunction. 10 tablet 2 5 Active hydroCHLOROthiaz qing (HydroDiuril) 25 mg tablet Take 25 mg by mouth daily. 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 Overview (01/09/2024): EGD 05/2018 Ellis's, repeat EGD in 3 years EGD 03/2022 Ellis's repeat EGD in 3 years EGD 05/2018 Ellis's, repeat EGD in 3 years EGD 03/2022 Ellis's repeat EGD in 3 years 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 PreDiabetes 03/11/2015 Hematuria 01/29/2014 Retention Urinary 01/29/2014 Hyperlipidemia 11/15/2013 Hypertension Essential Primary 11/14/2013 Pain Chest 11/14/2013 Polyp Colon 07/16/2013 Overview (01/09/2024): Colonoscopy 04/2018 polyp, repeat in 5 years Colonoscopy 04/2018 polyp, repeat in 5 years Colonoscopy 07/2023 normal, repeat in 7 years Benign Neoplasm Colon 07/09/2009 Overview (01/09/2024): -Colonoscopy 06/2009 polyps, repeat in 3 years Colonoscopy 04/2018 polyp, repeat in 5 years -Colonoscopy 06/2009 polyps, repeat in 3 years Colonoscopy 04/2018 polyp, repeat in 5 years Meniere's Disease Right 12/21/2008 Gastroesophageal Reflux Disease NOS 06/17/2006 Overview (01/09/2024): -EGD 08/2010 Ellis's, repeat EGD in 3 years EGD 03/2022 Ellis's repeat EGD in 3 years -EGD 08/2010 Ellis's, repeat EGD in 3 years EGD 03/2022 Ellis's repeat EGD in 3 years Encounters Date Type Department Care Team Description 04/20/2025 Clinical Communication Department of Urology in [place], [place] [address] [phone] Nia [place] APRN, C.N.P. Communication (Blood in urine) from Last 3 Months Immunizations Immunization Administration Dates Next Due HZV (ZOSTAVAX) 05/25/2012 Influenza TIV (IM) 04/05/2020, 8,05/08/2007,2005,04/14/2005 Influenza, Quadrivalent, Adj uvanted, Preservative Free 05/01/2023,04/14/2022,04/08/2021 Influenza, Seasonal, Injectable 05/25/2012,04/06 PCV13 05/12/2016 PPSV23 05/25/2012,02/24/2012,04/14/2005 RSV: respiratory syncytial v irus (ABRYSVO) bivalent vaccine 06/07/2023 RZV (SHINGRIX) 05/25/2020,01/08/2020 Tdap 04/17/2017,04/14/2005 influenza trivalent high dos e (HD)(PF) 04/08/2019,04/05/2019,04/24/2018,2016,05/12/2016,04/28/2015,04/21/2014,1 06/25/2012 influenza trivalent vaccine (6 months and older)(PF) 04/30/2013,05/16/2010,04/20/2009 Family History Medical History Relation Name Comments Leukemia Brother 1 Lung cancer Brother 2 Colon cancer Brother 3 Heart disease Father Heart attack Mother Stroke Mother Colon cancer Sister Relation Name Status Comments Brother 1 Brother 2 Brother 3 Father Mother Sister Social History Tobacco Use Types Packs/Day Years Used Date Smoking Tobacco: Former Cigarettes Smokeless Tobacco: Never Tobacco Cessation:Counseling Given: Not Answered Alcohol Use Standard Drinks/Week Comments Yes 3 (1 standard drink = 0.6 oz pur e alcohol) [facility] Utilities Answer Date Recorded In the past 12 months has [employer], gas, oil, or water [employer] threatened to shut off services in your [...] your living situation today? I [facility] a [facility] place to live 01/09/2025 Sex and Gender Information Value Date Recorded Sex Assigned at Male 01/09/2025 10:39 AM CDT Legal Sex Male 9:30 PM SENIOR CONSTRUCTION PROJECT MANAGER Gender Identity Male 01/09/2025 10:39 AM CDT Sexual Orientation Straight 01/09/2025 10 :39 AM CDT Last Filed Vital Signs Vital Sign Reading Time Taken Comments Blood Pressure 175/78 07/10/2023 10:21 AM SENIOR CONSTRUCTION PROJECT MANAGER Pulse 69 07/10/2023 10:21 AM SENIOR CONSTRUCTION PROJECT MANAGER Temperature 36.6 C (97.8 F) 07/10/2023 10:21 AM SENIOR CONSTRUCTION PROJECT MANAGER Respiratory Rate - - Oxygen Saturation - - Inhaled Oxygen Concentration - - Weight 111 kg (244 lb 11.4 oz) 07/10/2023 10:21 AM SENIOR CONSTRUCTION PROJECT MANAGER Height - - Body Mass Index - - Plan of Treatment Upcoming Encounters Date Type Department Care Team (Late st Contact Info) Description 07/10/2025 10:30 AM SENIOR CONSTRUCTION PROJECT MANAGER Appointment Department of Laboratory Medicine in [address] [phone] Nia Nelson APRN, C.N.P. [address] [address] 07/14/2025 3:00 PM SENIOR CONSTRUCTION PROJECT MANAGER Office Visit Department of Urology in [place], [place] [address] [address] Nia Nelson APRN, C.N.P. [address] [phone] Health Maintenance Due Date Last Done Comments Office Visit for Blood Pressure Check / Re-check 1941 Depression Screening (Annual PHQ-2) 06/25/2024 Fall Risk Screen (Annual) 06/25/2024 COVID-19 Vaccine ( season) 2025 04/18/2024, 05/07/2023, 04/07/2022, Additional history exists Influenza Vaccine (#1) 2025 , 05/01/2023, 04/14/2022, Additional history exists Creatinine Level (Kidney Function Test) 01/05/2026 01/05/2025, 10/17/2024, 10/04/2024, Additional history exists Fasting Glucose for Diabetes Screening 01/05/2026 01/05/2025, 10/17/2024, 09/30/2024, Additional history exists Potassium Level 01/05/2026 01/05/2025, 09/24, 10/04/2024, Additional history exists Sodium Level 01/05/2026 01/05/2025, 09/24, 10/04/2024, Additional history exists DTaP,Tdap,and Td Vaccines (3 - Td or Tdap) 04/17/2027 04/17/2017, 04/14/2005 Pneumococcal vaccine (50+ years) Completed 05/12/2016, 05/25/2012, 02/24/2012, Additional history exists Zoster Vaccines Completed 05/25/2020, 12/23, 05/25/2012 RSV vaccine - (32-36 weeks) or 50+ years Completed 06/07/2023 Colonoscopy Discontinued 08/06/2023, 07/11/2013 Colorectal Cancer Surveillance Discontinued CT Colonography Discontinued Cologuard Discontinued IPV Vaccines Aged Out No longer eligi ble based on patient's age to complete this topic Procedures Procedure Name Priority Date/Time Associated Diagnosis Comments COMPREHENSIVE METABOLIC PANEL, S/P Routine 01/05/2025 10:38 AM CDT Primary Malignant Neoplasm Of Prostate (HCC) from Last 3 Months or Most Recently Relevant to Health Maintenance Results * (ABNORMAL) Comprehensive Metabolic Panel (01/05/2025 10:38 AM CDT) Potassium, P 3.7 3.6 - 5.2 mmol/L 01/05/2025 2:07 PM CDT OWAT Sodium, P 142 135 - 145 mmol/L 01/05/2025 2:07 PM CDT OWAT Chloride, P 104 98 - 107 mmol/L 01/05/2025 2:07 PM CDT OWAT Bicarbonate, P 28 22 - 29 mmol/L 01/05/2025 2:07 PM CDT OWAT Anion Gap, P 10 7 - 15 01/05/2025 2:07 PM CDT OWAT BUN (Blood Urea Nitrogen), P 17 8 - 24 mg/dL 01/05/2025 2:07 PM CDT OWAT Creatinine 0.76 0.74 - 1.35 mg/dL 01/05/2025 2:07 PM CDT OWAT Estimated GFR (eGFR) 89 >=60 mL/min/BS A 01/05/2025 2:07 PM CDT OWAT Comment: Estimated GFR calculated using the 2020 CKD_EPI creatinine equation. Calcium, Total, P 9.8 8.8 - 10.2 mg/dL 01/05/2025 2:07 PM CDT OWAT Glucose, P 140 70 - 140 mg/dL 01/05/2025 2:07 PM CDT OWAT Protein, Total, P 7.4 6.3 - 7.9 g/dL 01/05/2025 2:07 PM CDT OWAT Albumin, P 4.2 3.5 - 5.0 g/dL 01/05/2025 2:07 PM CDT OWAT Aspartate Aminotransferase (AST), P 27 8 - 48 U/L 01/05/2025 2:07 PM CDT OWAT Alkaline Phosphatase, P 72 40 - 129 U/L 01/05/2025 2:07 PM CDT OWAT Alanine Aminotransferase (ALT), P 6(L) 7 - 55 U/L 01/05/2025 2:07 PM CDT OWAT Bilirubin, Total, P 0.3 0.0 - 1.2 mg/dL 01/05/2025 2:07 PM CDT OWAT Blood (Blood, Venous) 01/05/2025 10:38 AM CDT 01/05/2025 1:30 PM CDT Ajith Dumont APRNNHarjeetPHarjeet LAB BLOOD ADD-ON Final Result [facility] [address] [place] [address], [place] [facility] [place] [address] [place] [address] from Last 3 Months or Most Recently Relevant to Health Maintenance Insurance [place] [id number] [facility] [place] [id number]
--- OUTSIDE RECORDS SUMMARY | 2025-05-20 20:59 | XMS_ITS | Clinical Summary ---
Author Organization [employer] Address [address] [place] [id number] Care Team Providers Care Security Auditor Name Role Phone Van Brothers MD Unavailable [phone] Hali Austin NP Primary Care Provider Larissa Zapata RN Unavailable [phone] Allergies Active Allergy Reactions Criticality Noted Date Comments Adhesive Rash,Contact Dermatitis Medium 01/01/2013 Band aid adhesive Atorvastatin Myalgia Medium 01/25/2017 Lisinopril Cough 08/11/2019 Lovastatin Myalgia,Other - Describe In Comment Field 01/12/2015 Joint pain Lovastatin 40 mg was ineffective Potassium Aminobenzoate *Unknown 04/22/2019 Sunscreen *Unknown 04/22/2019 Medications fexofenadine (ERIKA) 180 mg tablet Take 1 tablet by mouth once daily. 90 tablet 3 08/04/19 11 Active fish oil-omega-3 fatty acids 1,000-340 mg capsule Take 2 g by mouth two times daily. Take 4000 mg daily 0 02/27/20 13 Active multivitamins-mine rals-lutein (CENTRUM SILVER) 0.4 mg-300 mcg- 250 mcg tab Take 1 tablet. by mouth once daily. Active glucosamine-chondr oit-vit c-mn 500-400 mg cap Take 1 capsule. by mouth two times daily. 0 05/30/20 18 Active albuterol HFA (PROAIR HFA) 90 mcg/actuation inhalerIndications :Bronchitis Inhale 2 Puffs by mouth 4 times daily if needed. 1 Inhaler 2 04/05/20 20 Active metroNIDAZOLE 0.75 % cream APPLY A THIN LAYER TO ENTIRE FACE 1-2 TIMES DAILY. 11/19/19 21 Active hydrocortisone (CORTIZONE) 2.5 % lotion APPLY TO FACE ONCE DAILY AT BEDTIME FOR UP TO TWO WEEKS AT A TIME REPEAT NEEDED FOR FLARES 07/26/19 21 Active carbidopa-levodopa , 25-100 mg, (SINEMET 25-100) 25-100 mg tablet TAKE TWO TABLETS BY MOUTH THREE TIMES A DAY, DO NOT TAKE WITH FOOD 05/17/20 21 Active betamethasone dipropionate 0.05% (DIPROSONE LOTION 0.05%) lotionIndications: Dry skin dermatitis APPLY TO AFFECTED AREA(S) TWO TIMES A DAY 60 mL 5 01/11/20 22 Active ketoconazole 2% shampoo (NIZORAL) 2 % shampooIndications :Seborrhea LATHER ON DAMP SCALP, LEAVE ON FOR 5 MINUTES, THEN RINSE WITH WATER ONE TO TWO TIMES A WEEK. 60 mL 1 10/02/19 23 Active leuprolide, 1 month, (LUPRON DEPOT) 3.75 mg intramuscular syringe kit Inject 1 Each (3.75 mg) intramuscular EVERY 26 WEEKS. 0 01/05/20 23 Active magnesium citrate 100 mg cap Take 1 Capsule by mouth two times daily. Active metoprolol tartrate (LOPRESSOR) 25 mg tabletIndications: New onset atrial fibrillation (HC) Take 1 Tablet (25 mg) by mouth 2 times daily if needed (recurrent arrhythmia/HR greater than 110). 30 Tablet 3 01/21/20 24 Active CPAPIndications:OS A (obstructive sleep apnea) autoCPAP, heated humidifier, mask, headgear, filters and tubing. Pressure: 4-15cm/H2O Length of Need: 99 Mask of choice. 1 Each 01/28/20 24 Active losartan (COZAAR) 50 mg tabletIndications: HTN (hypertension) Take 1 Tablet (50 mg) by mouth two times daily. 180 Tablet 3 07/24/19 25 Active polyethylene glycoL (MIRALAX) 17 gram/scoop powderIndications: Parkinson's disease with dyskinesia and fluctuating manifestations (HC),Chronic constipation Mix 1 scoop (17 g) in liquid then take by mouth once daily. 510 g 11 08/21/19 25 Active acetaminophen 500 mg tabletIndications: Cervical stenosis of spine Take 2 Tablets (1,000 mg) by mouth every 6 hours. Max acetaminophen dose: 4000mg in 24 hrs. 10/05/19 25 Active WalkerIndications: Herniated nucleus pulposus, L3-4 Walker with front wheels for home use. Anticipated use for 4 weeks 1 Each 10/05/19 25 Active gabapentin 100 mg capsuleIndications :Lumbosacral radiculopathy at L3 300 mg oral at bedtime for 2 weeks, then 200 mg oral at bedtime for 1 week, then 100 mg oral at bedtime, then stop. 70 Capsule 12/10/19 25 Active rosuvastatin 20 mg tabletIndications: ASCVD (arteriosclerotic cardiovascular disease),Hyperlipi demia, unspecified hyperlipidemia type TAKE ONE TABLET BY MOUTH AT BEDTIME 90 Tablet 3 12/11/19 25 Active hydroCHLOROthiazid e 25 mg tabletIndications: Hypertension, unspecified type Take 1 Tablet (25 mg) by mouth once daily. 90 Tablet 3 12/26/19 25 Active lansoprazole 30 mg capsuleIndications :Gastroesophageal reflux disease without esophagitis TAKE ONE CAPSULE BY MOUTH EVERY DAY 30 TO 60 MINUTES BEFORE FOOD 90 Capsule 2 01/09/20 25 Active nitroglycerin 0.4 mg sublingual tabletIndications: ASCVD (arteriosclerotic cardiovascular disease) Place 1 Tablet (0.4 mg) under the tongue every 5 minutes if needed for Chest Pain. 30 Tablet 1 01/20/20 25 Active isosorbide mononitrate (IMDUR) 30 mg extended release tablet 24 HourIndications: HD (arteriosclerotic heart disease),HTN (hypertension) Take 1 Tablet (30 mg) by mouth once daily. 30 Tablet 11 01/21/20 25 Active furosemide (LASIX) 20 mg tabletIndications: Edema, unspecified type Take 20 mg daily. If weight increases by 5 #, take 20 mg twice a day on MWF 120 Tablet 3 02/04/20 25 Active potassium chloride (KLOR-CON M20) 20 mEq extended-release tablet (part/cryst)Indica tions:Edema, unspecified type Take 20 mEq daily, if weight increases by 5#, take 20 mEq twice a day. 180 Tablet 02/04/20 25 Active apixaban (Eliquis) 5 mg tabletIndications: New onset atrial fibrillation (HC) Take 1 Tablet (5 mg) by mouth two times daily. 180 Tablet 3 02/06/20 25 Active cyclobenzaprine (FLEXERIL) 10 mg tabletIndications: Chronic bilateral low back pain without sciatica TAKE ONE TABLET BY MOUTH TWICE A DAY IF NEEDED FOR MUSCLE SPASM 60 Tablet 4 03/12/20 25 Active Active Problems Problem Noted Date Diagnosed Date Atrial fibrillation, persistent 11/19/2024 Overview (11/19/2024): Per Cardiology 01/21/24: Persistent atrial fibrillation, s/p PVI and CTI ablations on 12/22/2021. 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 for polyp removal and repeat EGD in 3 years Cervical stenosis of spine 05/29/2017 Osteophyte of cervical spine 05/29/2017 Degenerative disc disease, cervical 05/29/2017 Controlled substance agreement signed 02/27/2017 BERNARDO 05/03/2016 AHI-5.7 in REM sleep 20's 05/30/20 16 Degenerative disc disease, lumbar 01/31/2016 Prostate cancer 01/31/2016 Pre-diabetes 03/11/2015 Retention of urine 01/29/2014 Hyperlipidemia 11/15/2013 Unstable angina 11/15/2013 Colon polyps 07/16/2013 Overview (08/06/2023): Colonoscopy 04/2018 polyp, repeat in 5 years Colonoscopy 07/2023 normal, repeat in 7 years Benign neoplasm of colon 07/09/2009 Overview (05/10/2018): -Colonoscopy 06/2009 polyps, repeat in 3 years Colonoscopy 04/2018 polyp, repeat in 5 years M ni re's Disease 12/21/2008 Lumbago 06/17/2006 Overview (06/17/2006): takes ibuprofen GERD (gastroesophageal reflux disease) 6 Overview (04/20/2022): -EGD 08/2010 Ellis's, repeat EGD in 3 years EGD 03/2022 Ellis's repeat EGD in 3 years ASCVD (arteriosclerotic cardiovascular disease) Overview (05/04/2014): -Stenting to OM1 1996 -Coronary angiogram 2002 - no significant stenosis, stent patent, ejection fraction 60% Stenting OM1, OM2, and RCA with KAPIL January 11/2013 Angiogram November 2003 All stents patent Hypertension Class 2 severe obesity with serious comorbidity and body mass index (BMI) of 35.0 to 35.9 in adult Overview (11/19/2024): BMI: 35.44 (10/17/24) Comorbidities: HTN, dyslipidemia, BERNARDO Resolved Problems Problem Noted Date Diagnosed Date Resolved Date Anticoagulation monitoring, DOAC 05/26/2021 11/24/2022 Closed fracture of rib of right side 01/05/2017 11/13/2018 Cellulitis of skin 01/05/2017 9 New onset atrial fibrillation 04/12/2016 11/19/2024 Pain management contract agreement 01/31/2016 02/27/2017 Tear of left rotator cuff 01/11/2015 Throat tightness 11/25/2013 05/29/2017 Throat Discomfort 01/19/2011 05/29/2017 Chest pain, unspecified 06/17/200612/23 Postsurgical percutaneous tr ansluminal coronary angioplasty status 04/15/1997 06/17/2006 Other ill-defined and unknow n causes of morbidity and mortality 06/17/2006 AORTIC ATHEROSCLEROSIS 01/06 Dyslipidemia 11/19/2024 Encounters Date Type Department Care Team Description 04/29/2025 Telephone [facility] [address] [place] [address] Harrison Cervantse MD Referral 04/27/2025 Telephone [facility] [address] [place] [address] Hali Austin NP Appointment (Discuss results from endoscopy) 04/18/2025 Lab Requisition [facility] [phone] Harrison Cervantes MD 04/17/2025 9:15 AM CDT Procedure Only [facility] [address] [place] [address] Harrison Cervantes MD 04/17/2025 Travel 03/28/2025 11:25 AM CDT Office Visit [facility] [address] [place] [address] Corinne Maharaj NP Urinary Problem (Urgency and dysuria upon waking this morning.) 03/28/2025 Travel 03/10/2025 Refill [facility] [address] [place] [address] Hali Austin NP Refill Request (Cyclobenzaprine) from Last 3 Months Immunizations Immunization Administration Dates Next Due AMB Influenza, IIV3 (Age >=3 years)(Flu Clinic Only) 05/07/2008 COVID-19 vaccine (Coupay NTech 30mcg/0.3mL) 12YO+ BIVALENT PF, MDV 04/07/2022 COVID-19 vaccine (KofikafeBio NTech 30mcg/0.3mL) PF, MDV 09/14/2020,08/24/2020 INFLUENZA, IIV3 PF (AGE >= 6 MO) 04/30/2013,04/26,04/20/2009 Influenza, High-dose Inactivated 019,04/24/2018,04/17/2017,04/21 Influenza, IIV3 (Age >=3 years) 04/30/2013,05/08 Influenza, Inactivated AIIV4 (Age 65+ Years) Preserv Free 05/01/2023,04/14/2022,04/08/2021 Influenza, Inactivated IIV3 (Age 65+ Years) Preserv Free 04/18/2024,04/05/2020 Pneumococcal Poly,23-Valent (Pneumovax) 05/25/2012,02/24/2012,04/14/2005 Pneumococcal conj 13-Valent (Prevnar 13) 05/12/2016 RSV, Bivalent Vaccine Recons tituted (Abrysvo 120MCG/0.5mL) 06/07/2023 Tdap 04/17/2017,04/14/2005 Zoster (Shingrix-RZV, recombinant) 05/25/2020, Zoster (Zostavax-ZVL, live) 05/25/2012 Family History Medical History Relation Name Comments Heart Disease Brother 1 Lung cancer Brother 1 Heart Disease Brother 2 Heart attack Brother 2 Leukemia Brother 3 Cancer-colon Brother 4 Metastasic COPD Father Heart Disease Father No Known Problems Maternal Grandfather No Known Problems Maternal Grandmother Coronary artery disease Mother Heart attack Mother Stroke Mother Heart attack Paternal Grandfather No Known Problems Paternal Grandmother Cancer-ovarian Sister 1 Cancer-breast Sister 2 Cancer-colon Sister 2 Heart Disease Sister 2 Arthritis Sister 3 Stroke Sister 3 Relation Name Status Comments Brother 1 Brother 2 Brother 3 Alive Brother 4 Father Maternal Grandfather Maternal Grandmother Mother Paternal Grandfather Paternal Grandmother Sister 1 Sister 2 Alive Sister 3 Social History Tobacco Use Types Packs/Day Years Used Date Smoking Tobacco: Former Cigarettes 1 30 1 0 - 1989 Smokeless Tobacco: Former Chew Quit: 1989 Tobacco Cessation:Counseling Given: Yes Alcohol Use Standard Drinks/Week Comments Yes 0 (1 standard drink = 0.6 oz pur e alcohol) OCC PHQ-2 Answer Date Recorded PHQ-2 TOTAL SCORE 0 01/22/2024 Social Connections Answer Date Recorded Do you often feel lonely or isolated from those around you? 0 10/13/2024 Financial Resource Strain Answer Date R ecorded Difficulty of Paying Living Expenses 3 10/13/2024 Difficulty of Paying Living Expenses Not on file 10/13/2024 Food Insecurity Answer Date Recorded Do you worry your food will run out before you are able to buy more? 1 10/13/2024 Transportation Needs Answer Date Record ed Does lack of transportation keep you from medica l appointments? 1 10/13/2024 Does lack of transportation keep you from work, meetings or getting things that you need? 1 10/13/2024 Housing Stability Answer Date Recorded What is your housing situation today? 1 10/13/2024 Interpersonal Safety Answer Date Record ed Are you being hit, kicked, p ushed or yelled at (see row info)? No 10/17/2024 Interpersonal Safety Abuse 12 - 18 Not on file 10/17/2024 Interpersonal Safety Ambulatory Vulnerability No t on file 10/17/2024 Utilities Answer Date Recorded Do you have trouble paying f or utilities (for example, heat, electricity, water, phone)? 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 Not on file Not on file Not on file Obstetrics History Last Filed Vital Signs Vital Sign Reading Time Taken Comments Blood Pressure 132/67 03/28/2025 11:53 AM CDT Pulse 74 03/28/2025 11:53 AM CDT Temperature 36.4 C (97.5 F) 03/28/2025 11:53 AM CDT Respiratory Rate 18 03/28/2025 11:5 3 AM CDT Oxygen Saturation 98% 03/28/2025 11: 53 AM CDT Inhaled Oxygen Concentration - - Weight 108.6 kg (239 lb 6.4 oz) 025 11:53 AM CDT Height 177.8 cm (5' 10) 10/17/2024 10: 35 AM CDT Body Mass Index 34.35 10/17/2024 10:35 AM CDT Plan of Treatment Upcoming Encounters Date Type Department Care Team (Latest Contact Info) Description 5 10:50 AM HVAC SERVICE TECH Office Visit [facility] [address] [place] [address] Karishma Mills PA [address] [place] [address] 6 11:05 AM HVAC SERVICE TECH Hospital Encounter [facility] [address] [place] [address] Larry Mandujano MD [address] [address] 6 12:05 PM HVAC SERVICE TECH - 6 1:05 PM HVAC SERVICE TECH Surgery [facility] [address] [place] [address] Larry Mandujano MD [address] [address] ESOPHAGOGASTRODUODENOSCOPY WITH ENDOSCOPIC RESECTION MUCOSA Scheduled Procedures Name Priority Associated Diagnoses Date/Time ESOPHAGOGASTRODUODENOSCOPY W ITH ENDOSCOPIC RESECTION MUCOSA Tier 3: within 90 days gastric polyps 07/31/2025 12:05 PM HVAC SERVICE TECH Health Maintenance Due Date Last Done Comments BMI (ht and wt on same day) for age 18+ 01/21/2025 01/22/2024, 01/21/2024, 07/16/2023, Additional history exists Medicare Wellness for age 65+ 01/22/2025 01/22/2024 Depression screening for age 12+ 01/24/2025 01/25/2024, 01/22/2024, 04/10/2022, Additional history exists Influenza Vaccine (#1) 2025 4, 05/01/2023, 04/14/2022, Additional history exists Tetanus booster 04/17/2027 04/17/2017, 03/26, 04/14/2005 Pneumococcal series for age 50+ Completed 05/12/2016, 05/25/2012, 02/24/2012, Additional history exists Zoster (shingles) series for age 50+ Completed 05/25/2020, 01/08/2020, 05/25/2012 RSV vaccine for adults or Completed 06/07/2023 Hepatitis B series for 19+ Aged Out N o longer eligible based on patient's age to complete this topic Goals Goal Patient Goal Type Associated Problems Recent Progress Patient-Stated? Author Autogenerat ed Goal Care Plan Autogenerated Problem No Deonna Islas [facility] Medical Devices Implanted Type Area Water Resources Engineer Device Identifier Shelf Expiration Date Model / Serial / Lot [id number] - [id number] Implanted:Qty: 4 on 03/10/2015 by Van Brothers MD at [facility] Left: Shoulder D-ARTHREX 09/23/2016 [id number] / / [id number] Description:Suture [place] -[id number] [facility] Procedures Procedure Name Priority Date/Time Associated Diagnosis Comments AMB CONSULT TO GASTROENTEROLOGY Routine 05/07/2025 7:40 PM HVAC SERVICE TECH LAB TRACKING EVENT Routine 04/18/2025 9:57 AM CDT PATH TISSUE EXAM Routine 04/17/2025 9:57 AM CDT ESOPHAGOGASTRODUODENOSCOPY Routine 04/17 12:00 AM CDT Ellis's esophagus without dysplasia URINALYSIS MICROSCOPIC STAT 11:42 AM CDT Dysuria URINE CULTURE Routine 03/28/2025 11:42 AM CDT Dysuria UA W/ SEDIMENT EXAM REFLEXED PER CRITERIA STAT 03/28/2025 11:42 AM CDT Dysuria from Last 3 Months Results * LAB TRACKING EVENT (04/18/2025 9:57 AM CDT) Other (Other) Client Collect / Unknown 04/18/2025 9:57 AM CDT 04/18/2025 2:23 PM CDT us Harrison Cervantes MD LAB BILL ONLY Final Res ult [facility] [address] [place] [address], [place] * PATH TISSUE EXAM (04/17/2025 9:57 AM CDT) Case Report Pathology Report Case: [id number] Authorizing Provider: Harrison Cervantes MD Collected: 04/17/2025 0957 Ordering Location: [facility] Received: 04/20/2025 0801 Pathologist: Jose Ramon Bloom MD Specimens: A) - Stomach Biopsy, gastric body sub-location B) - Stomach Biopsy, sub-location: gastric fundus C) - GE Junction Biopsy D) - Distal Esophagus Biopsy 04/21/2025 11:48 AM CDT [facility] Final Diagnosis A) STOMACH, BODY POLYP, BIOPSY: 1. Hyperplastic polyp (see comment) 2. Negative for dysplasia and malignancy 3. Per the endoscopy report: a. Polyp size(s): Not specified b. Resection: No removal (biopsy only) c. Retrieval: No removal (biopsy only) 4. Negative for background mucosa 5. Negative for Helicobacter B) STOMACH, FUNDUS, POLYP, BIOPSY: 1. Hyperplastic polyp (see comment) 2. Negative for dysplasia and malignancy 3. Per the endoscopy report: a. Polyp size(s): Not specified b. Resection: No removal (biopsy only) c. Retrieval: No removal (biopsy only) 4. Negative for background mucosa 5. Negative for Helicobacter C) GE JUNCTION POLYP, BIOPSY: 1. Benign gastric xanthoma (see comment) a. Sampling: Cardia oxyntic b. Distribution: Cardio oxyntic 2. Negative for dysplasia or malignancy 3. Negative for inflammation or atrophy D) ESOPHAGUS, DISTAL, BIOPSY: 1. Specialized Ellis's mucosa 2. Negative for dysplasia 3. Background squamous mucosa with inflammatory changes consistent with reflux esophagitis 04/21/2025 11:48 AM CDT [facility] at 1148 CDT Comment A, B) Removal of hyperplastic polyps larger than 10 mm is recommended as there is a small risk of cancer within these polyps. C) Gastric xanthomas (aka xanthelasmas) are benign proliferations of foamy histiocytes expanding the lamina propria; they typically manifest endoscopically as yellow plaque-like lesions. Gastric xanthomas are thought to be associated with a localized response to tissue injury and are not neoplastic or associated with a systemic lipid disorder. No additional clinical follow-up is indicated. Case seen in consultation with Dr. Griggs. 04/21/2025 11:48 AM CDT [facility] Clinical Information History of Ellis's esophagus EGD findings: Mucosal changes consistent with short segment Ellis's esophagus. Gastric polyps. GE junction polyp. 04/21/2025 11:48 AM CDT [facility] Gross Description A) Received in formalin are 5 jaime mucosal fragments ranging from 1 mm to 3 mm in greatest dimension, which are entirely submitted in one cassette. It is labeled with the patient's name and designated gastric body polyp. B) Received in formalin are 3 jaime mucosal fragments ranging from 1 mm to 3 mm in greatest dimension, which are entirely submitted in one cassette. It is labeled with the patient's name and designated gastric fundus polyp. C) Received in formalin are 3 jaime mucosal fragments ranging from 1 mm to 3 mm in greatest dimension, which are entirely submitted in one cassette. It is labeled with the patient's name and designated gastroesophageal junction polyp. D) Received in formalin are 7 jaime mucosal fragments ranging from 1 mm to 3 mm in greatest dimension, which are entirely submitted in one cassette. It is labeled with the patient's name and designated distal esophagus, Ellis's esophagus. Emi Benitez 04/20/2025 8:06 AM 04/21/2025 11:48 AM CDT [facility] Microscopic Description The final diagnosis is based on microscopic examination of appropriate sections of all specimens. 04/21/2025 11:48 AM CDT [facility] Additional Information Interpreted at [facility], Central Laboratory - [address], [place] [address] 04/21/2025 11:48 AM CDT [facility] Other (Stomach Biopsy) 04/17/2025 9:57 AM CDT 04/20/2025 8:01 AM CDT Specimen (specimen) (Stomach Biopsy) 04/17/2025 9:57 AM CDT 04/20/2025 8:01 AM CDT Specimen (specimen) (GE Junction Biopsy) 04/17/2025 9:57 AM CDT 04/20/2025 8:01 AM CDT Specimen (specimen) (Distal Esophagus Biopsy) 04/17/2025 9:57 AM CDT 04/20/2025 8:01 AM CDT us Harrison Cervantes MD PATHOLOGY/CYTOLOGY Final Result [facility] [address] [place] [address], [place] * ESOPHAGOGASTRODUODENOSCOPY (04/17/2025 12:00 AM CDT) us Hali Austin NP GI PROCEDURE ORD Final Resul t * (ABNORMAL) URINALYSIS MICROSCOPIC (03/28/2025 11:42 AM CDT) RBC None Seen 0-2, None Seen /HPF 03/28/2025 12:06 PM [facility] WBC 3-5 0-2, 3-5, None Seen /HPF 03/28/2025 12:06 PM [facility] BACTERIA Rare None Seen, Rare, Few Bacteria/ HPF 03/28/2025 12:06 PM [facility] EPITHELIAL CELLS Few None Seen, Few Epi/HPF 03/28/2025 12:06 PM [facility] Mucus Present 03/28/2025 12:06 PM [facility] WHITE CELL CLUMPS Present(A) (none) 03/28/2025 12:06 PM [facility] Urine URINE SPECIMEN / Unknown Non-Blood / Unknown 03/28/2025 11:42 AM CDT 03/28/2025 11:54 AM CDT us Ray KNAPP URINE Final Resu lt [facility] [address] [place] [address] * (ABNORMAL) URINE CULTURE (03/28/2025 11:42 AM CDT) CULTURE RESULT(A) 03/31/2025 6:56 AM CDT [facility] CULTURE >100,000 CFU/mL Proteus mirabilis 03/31/2025 6:56 AM CDT [facility] Urine URINE SPECIMEN / Unknown Non-Blood / Unknown 03/28/2025 11:42 AM CDT 03/28/2025 11:54 AM CDT Narrative Organism Antibiotic Method Susceptibility Proteus mirabilis TRIMETHOPRIM/SULF <=07/13: S Proteus mirabilis AMPICILLIN <=2: S Proteus mirabilis CEFAZOLIN 4: I Proteus mirabilis CEFAZOLIN-UC 4: S Comment:Cefazolin-UC interpretations are for therapy of uncomplicated UTIs due to E.coli, K.pneumoniae, or P.mirablis. Cefazolin breakpoint is used as a surrogate to predict results for the oral agents - cefdinir, cefuroxime, and cephalexin, when used for therapy of uncomplicated UTIs due to E coli, K, pneumoniae, and P. mirabilis. The FDA recommends cefadroxil susceptibility can be deduced from cefazolin. Proteus mirabilis GENTAMICIN <=1: S Proteus mirabilis CEFTRIAXONE <=0.25: S Proteus mirabilis CEFTAZIDIME <=0.5: S Proteus mirabilis LEVOFLOXACIN <=0.12: S Proteus mirabilis CIPROFLOXACIN <=0.06: S Proteus mirabilis PIPERACILLIN/TAZO <=4: S Proteus mirabilis AMPICILLIN/SULBACTAM <=2: S Proteus mirabilis CEFEPIME <=0.12: S Proteus mirabilis MEROPENEM 0.5: S Proteus mirabilis NITROFURANTOIN 128: R Ray KNAPP MICROBIOLOGY Final Resu lt [facility] [address] [place] [address], [place] * (ABNORMAL) UA W/ SEDIMENT EXAM REFLEXED PER CRITERIA (03/28/2025 11:42 AM CDT) COLOR Yellow Yellow Color 03/28/2025 12:04 PM [facility] CLARITY Clear Clear Clarity 03/28/2025 12:04 PM [facility] SPECIFIC GRAVITY,URINE 1.015 1.010, 1.015, 1.020, 1.025 03/28/2025 12:04 PM [facility] PH,URINE 5.5 6.0, 7.0, 8.0, 5.5, 6.5, 7.5, 8.5 03/28/2025 12:04 PM [facility] UROBILINOGEN, QUALITATIVE Normal Normal EU/dl 03/28/2025 12:04 PM [facility] PROTEIN, URINE 30(A) Negative mg/dL 03/28/2025 12:04 PM [facility] GLUCOSE, URINE Negative Negative mg/dL 03/28/2025 12:04 PM [facility] KETONES,URINE Negative Negative mg/dL 03/28/2025 12:04 PM [facility] BILIRUBIN,URI NE Negative Negative 03/28/2025 12:04 PM [facility] OCCULT BLOOD,URINE Negative Negative 03/28/2025 12:04 PM [facility] NITRITE Negative Negative 03/28/2025 12:04 PM [facility] LEUKOCYTE ESTERASE Trace(A) Negative 03/28/2025 12:04 PM [facility] Urine URINE SPECIMEN / Unknown Non-Blood / Unknown 03/28/2025 11:42 AM CDT 03/28/2025 11:54 AM CDT Ray KNAPP URINE Final Resu lt [facility] [address] [place], [place] [id number] from Last 3 Months Additional Health Concerns Active Problems Noted Date Diagnosed Date Autogenerated Problem 05/15/2025 Insurance MEDICARE PART A [place] ONLY MEDICARE ADVANTAGE MR [place] Advance Directives Documents on File Type Date Recorded 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 Expl 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 Healthcare Directive 05/13/2019 3:10 PM D uplicate 05/16/2019 Healthcare Directive 05/06/2019 12:00 AM 05/06/2019 * Full Code (Latest Code Status on File) Date Activated Date Inactivated Comments 10/03/2024 4:40 PM 10/04/2024 5:55 PM Question Answer Comments Code Status Discussion: Other * Full Code Date Activated Date Inactivated Comments 10/03/2024 9:48 AM 10/03/2024 4:40 PM Question Answer Comments Code Status Discussion: Unable to Assess Preferences, Provider to review later * Full Code Date Activated Date Inactivated Comments 12/22/2021 10:36 AM 12/23/2021 1:52 PM Question Answer Comments Code Status Discussion: Other * Full Code Date Activated Date Inactivated Comments 11/09/2021 9:27 AM 11/09/2021 12:31 PM Question Answer Comments Code Status Discussion: Reviewed Preferences * Full Code Date Activated Date Inactivated Comments 08/22/2019 9:08 AM 08/22/2019 12:26 PM Care Teams Security Auditor Relationship Specialty Start Date End Date Hali Austin NP [address] [facility] [place] [address] PCP - General Nurse Practitioner - Family 11/25/21 Van Brothers MD Orthopedics Surgery - Orthopedic 02/02/12 Larissa Zapata, KARYN [address] [place] [address] Registered Nurse 10/09/23
[2025-05-20 21:13] LABS: NT Pro B Type NatriureticPept* 67 pg/mL (See Note)
[2025-05-20] MEDS: PANTOPRAZOLE SODIUM 40 MG INJ IVP (23:03)
[2025-05-21] MEDS: ACETAMINOPHEN 500 MG TABLET 1000 MG PO (00:09)
== END 2025-05-21 01:11 | disposition short-term general hospital (02) ==
PROVIDERS: Emergency Provider Family Medicine; PCP Nurse Practitioner Family
DX: K92.2 Gastrointestinal hemorrhage, unspecified (principal); D62 Acute posthemorrhagic anemia; I20.89 Other forms of angina pectoris; I10 Essential (primary) hypertension; G20.A1 Parkinson's disease without dyskinesia, without mention of fluctuations; Z79.01 Long term (current) use of anticoagulants; Z86.79 Personal history of other diseases of the circulatory system; Z87.19 Personal history of other diseases of the digestive system
CPT/HCPCS: 36415; 71046; 80053; 82270; 83735; 83880; 84484; 85025; 86140; 93005; 96374; 99285; A9270; J2470

== ENCOUNTER 2025-05-21 00:43 | Outpatient (CLI) | payer OTHER, SELFPAY | END 2025-05-21 00:44 | disposition home or self-care (01) | LOC: AMB 05-26 18:08 | PROVIDERS: PCP Nurse Practitioner Family; Visit Provider Family Medicine | DX: K92.2 Gastrointestinal hemorrhage, unspecified (principal) | CPT/HCPCS: A0425; A0429 ==